=== PATIENT | female | born 1970 | race Caucasian/White ===

== ENCOUNTER 2018-12-13 01:17 | Inpatient (IN) | payer BC ==
[2018-12-13] MEDS ORDERED: ONDANSETRON 4 MG/2 ML VIAL IVPUSH ONE (02:14)
[2018-12-13] MEDS ORDERED: ACETAMINOPHEN 1000 MG/100 ML VIAL (NON FORMULARY) IVPB ONE (02:15)
[2018-12-13] MEDS ORDERED: ACETAMINOPHEN INJECTION 100 ML IVPB ONE (02:38)
[2018-12-13] MEDS ORDERED: ONDANSETRON 4 MG/2 ML VIAL ONE ×2 (02:39→11:42)
[2018-12-13 02:40] LABS: BASO % 0.4 % (0-2.0); EOS % 0.3 % (0-4.5); HEMATOCRIT 33.2 % (32.4-45.2); HEMOGLOBIN 10.5 GM/dL (10.7-15.3); LYMPH % 6.1 % (8-40); MCH 24.9 pg (25.7-33.7); MCHC 31.7 g/dl (32.0-36.0); MEAN CELL VOLUME 78.7 fl (80-96); MEAN PLT VOLUME 7.6 fl (7.5-11.1); MONO % 4.4 % (3.8-10.2); NEUT % 88.8 % (42.8-82.8); PLATELET COUNT 308 K/MM3 (134-434); RBC 4.21 M/mm3 (3.60-5.2); RDW 18.1 % (11.6-15.6); WHITE BLOOD COUNT 10.2 K/mm3 (4.0-10.0)
--- NOTE | 2018-12-13 02:49 | PDOC ---
History of Present Illness - General Chief Complaint: Pain Stated Complaint: ABD PAIN Time Seen by Provider: 12/13/18 02:48 History Source: Patient Exam Limitations: No Limitations - History of Present Illness Initial Comments: Pt is a 48 yo F, with PMH of gastritis, who presents with RUQ and epigastric abdominal pain, with associated nausea and vomiting since last night. Pt states she has had similar pain after eating fatty and spicy foods in the past, but todays pain was worse, and she was unable to tolerate any PO food or fluid intake. Pt denies any hematemesis or blood in the stool. Pt denies any recent fevers/chills, headache, vision changes, syncope, chest pain, palpitations, SOB , urinary symptoms, diarrhea/constipation, or leg swelling. Allergies: NKDA PCP: Curtis Amaral GI: [place] ([facility]) -- last endoscopy done 04/2018 which showed only gastritis. Social: Pt denies any cigarette, alcohol, or drug use. Pt denies any recent travel or sick contacts. Surgical: appendectomy Family: no relevant history. 12/13/18 07:12 Past History - Travel Traveled outside of the country in the last 30 days: No Close contact w/someone who was outside of country & ill: No - Past Medical History Allergies/Adverse Reactions: Allergies Allergy/AdvReac Type Severity Reaction Status Date / Time No Known Allergies Allergy Verified 12/13/18 01:47 Home Medications: Ambulatory Orders NK [No Known Home Medication] 12/13/18 - Suicide/Smoking/Psychosocial Hx Smoking History: Never smoked Hx Alcohol Use: No Drug/Substance Use Hx: No Abd/GI Specific PMHX - Complaint Specific PMHX Colitis: No Diverticulitis: No Gall Bladder Disease: No GERD: Yes Hepatitis: No Irritable Bowel Synd (IBS): No Pancreatitis: No GI Ulcer Disease: No Review of Systems - Review of Systems Able to Perform ROS?: Yes Is the patient limited Albanian proficient: No Constitutional: Yes: Weight Stable. No: Chills, Diaphoresis, Fever, Loss of Appetite, Malaise, Weakness HEENTM: No: Blurred Vision, Double Vision, Nose Congestion, Throat Pain, Throat Swelling, Difficulty Swallowing Respiratory: No: Cough, Orthopnea, Shortness of Breath Cardiac (ROS): No: Chest Pain, Edema, Irregular Heart Rate, Lightheadedness, Palpitations, Syncope, Chest Tightness ABD/GI: Yes: See HPI, Nausea, Poor Appetite, Poor Fluid Intake, Vomiting, Abdominal cramping. No: Constipated, Diarrhea, Difficulty Swallowing, Rectal Bleeding : No: Burning, Dysuria, Frequency, Hematuria, Pain, Urgency Musculoskeletal: No: Back Pain, Joint Pain, Muscle Pain, Muscle Weakness Integumentary: No: Rash Neurological: No: Headache, Numbness, Weakness, Unsteady Gait, Dizziness Psychiatric: No: Sleep Pattern Change, Change in Appetite Endocrine: No: Increased Urine, Change in Weight Hematologic/Lymphatic: No: Anemia, Blood Clots, Easy Bleeding, Easy Bruising All Other Systems: Reviewed and Negative *Physical Exam - Vital Signs Last Vital Signs Temp Pulse Resp BP Pulse Ox 98.3 F 92 H 20 112/56 L 98 12/13/18 01:44 12/13/18 01:44 12/13/18 01:44 12/13/18 01:44 12/13/18 01:44 - Physical Exam Comments: Vitals stable, pt afebrile. Pt vomiting and appears very uncomfortable on initial exam. Normal body habitus. Pt alert and oriented x3. scagliola mechanic generally intact, muscular strength and sensation intact. No midline spinal tenderness, step-offs, or crepitus. Head normocephalic, atraumatic. Eyes PERRLA, EOMI. Oropharynx without erythema or exudates, no LAD b/l. No nasal congestion, hearing intact. Clear heart sounds, S1/S2, no JVD, b/l pedal edema, or heart murmur. Clear lung sounds, no respiratory distress, wheezes, crackles, or accessory muscle use. RUQ and epigastric TTP. No rebound, no guarding. Abdomen soft, non-distended, and with normoactive bowel sounds. Skin without jaundice or rash. 12/13/18 07:15 ED Treatment Course - LABORATORY CBC & Chemistry Diagram: 12/13/18 02:30 12/13/18 02:30 - ADDITIONAL ORDERS Additional order review: 12/13/18 02:30 RBC 4.21 MCV 78.7 L MCHC 31.7 L RDW 18.1 H MPV 7.6 Neutrophils % 88.8 H Lymphocytes % 6.1 L Monocytes % 4.4 Eosinophils % 0.3 Basophils % 0.4 - Medications Given in the ED: ED Medications Discontinued Medications Generic Name Dose Route Start Last Admin Trade Name Emerson PRN Reason Stop Dose Admin Acetaminophen 1,000 mg 12/13/18 02:15 12/13/18 02:46 Ofirmev Injection - IVPB 12/13/18 02:16 1,000 mg ONCE ONE Administration Ondansetron HCl 8 mg 12/13/18 02:14 12/13/18 02:46 Zofran Injection IVPUSH 12/13/18 02:15 8 mg NOW ONE Administration Medical Decision Making - Medical Decision Making Pt was seen at bedside, also will be seen by attending Dr. Alex. Pt presenting with RUQ pain, consistent story with cholelithiasis vs choledocholithiasis vs GERD. Will evaluate with labs and RUQ US. Provided 8 mg IV zofran, 1 L IV NS, 1 g ofirmev, and 20 mg IV pepcid for improvement of nausea and abdominal pain. Will continue to reassess pt and monitor for symptomatic improvement. ECG: NSR, intervals WNL (HR 79, OH 144, QRS 92, QTc 403). TWIs in V1-V4. No prior ECG for comparison. 12/13/18 07:16 CBC WNL CMP: AST 918, ALT 439 Trop <.02 negative US showed fatty liver. GB with sludge and sludge ball. No CBD dilation or signs of obstruction. Pt admitted to hospitalist team for further work-up (HIDA vs MRCP) -- pt admitted to Dr. Shah. Pt stable and states pain much improved after interventions. 12/13/18 07:18 *DC/Admit/Observation/Transfer Diagnosis at time of Disposition: Elevated transaminase level, RUQ pain Cholelithiases Qualifiers: Cholelithiasis location: other site Biliary obstruction: without biliary obstruction Qualified Code(s): K80.80 - Other cholelithiasis without obstruction - Discharge Dispostion Condition at time of disposition: Stable Decision to Admit order: Yes - Referrals - Patient Instructions - Post Discharge Activity
[2018-12-13 03:04] LABS: LIPASE 229 U/L (73-393)
[2018-12-13 03:05] LABS: ALBUMIN 3.9 g/dl (3.4-5.0); BILIRUBIN,TOTAL 0.8 mg/dL (0.2-1); BLOOD UREA NITROGEN 17.4 mg/dL (7-18); CREATININE 0.8 mg/dL (0.55-1.3); POTASSIUM 3.5 mmol/L (3.5-5.1); TOT PROT 6.9 g/dl (6.4-8.2)
--- NOTE | 2018-12-13 03:05 | PDOC ---
Attending Attestation - Resident Resident Name: Mana Brown - ED Attending Attestation I have performed the following: I have examined & evaluated the patient, The case was reviewed & discussed with the resident, I agree w/resident's findings & plan - HPI HPI: 12/13/18 04:44 48-year-old female with right upper quadrant pain and vomiting. - Physicial Exam PE: 12/13/18 04:45 agree with resident exam - Medical Decision Making 12/13/18 04:46 48-year-old female with right upper quadrant pain and abnormal LFTs on exam Ultrasound confirms gallbladder sludge Patient has persistent tenderness on reexam at 4:37 AM Plan for admit for transaminitis and biliary colic for further workup
[2018-12-13 03:13] LABS: INR 1.1 (0.83-1.09)
[2018-12-13] MEDS ORDERED: SODIUM CHLORIDE 1,000 ML IV STA (03:14)
[2018-12-13] MEDS ORDERED: FAMOTIDINE 20 MG/50 ML IVPB 20 MG/50 ML MG IVPB ONE ×2 (03:14→04:27)
[2018-12-13 06:25] LABS: EPI CELLS 19.9 /HPF (0-5/HPF); HYALINE CASTS 9 /lpf (0-8); PH,URINE 8.5 (5.0-8.0); URINE APPEARANCE CLEAR; URINE BACTERIA 211.9 /hpf (NEGATIVE); URINE BILIRUBIN NEGATIVE (NEGATIVE); URINE COLOR YELLOW; URINE GLUCOSE (UA) NEGATIVE (NEGATIVE); URINE KETONE NEGATIVE (NEGATIVE); URINE LEUK ESTERASE NEGATIVE (NEGATIVE); URINE NITRITE NEGATIVE (NEGATIVE); URINE PROTEIN 2+ (NEGATIVE); URINE RBC 5 /hpf (0-4)
--- NOTE | 2018-12-13 07:35 | HP ---
CHIEF COMPLAINT:RUQ pain/vomiting PCP: Dr. Amaral HISTORY OF PRESENT ILLNESS: 48 y.o female with PMH of gastritis, pinched nerves in neck presents to the ED with complaints of abdominal pain/nausea/vomiting- patient has had a history of having abdominal pains shortly after eating (especially after eating greasy, fatty meats) for which she has seen a GI doctor in the city for; she had an endosocpy and sonogram done last year which showed some gastritis and fatty liver but no other acute findings, and she has been taking the occasional antacid pill in the interim. Yesterday she states that she was eating some ceviche, manchego cheese and crackers and had a few sips of a mimosa when the pain started, she states it was mainly in the RUQ, she also had some associated diarrhea/nausea- so she took a tylenol and rolaid and the pain felt better. She then went on to have fried coconut wrapped pork for dinner and the pain got as unbearable, (02/02) that she told her to call the ambulance . she denies any fevers,chills, SOB , no recent travel or sick contacts, ER course was notable for: (1)vitals wnl (2)WBC 10.2; AST 918, ALT 439 lipase wnl (3)Ab U/S showed gallbladder sludge with possible sludge ball; a nonshadowing stone or large polyp present (4) given pepcid/zofran/tylenol Recent Travel: denies PAST MEDICAL HISTORY: see above PAST SURGICAL HISTORY: appendectomy as a child Social History: Smoking:denies Alcohol:social drinking Drugs: denies Family History:family history of gallstones on fathers side; father from lung ca, paternal grandmother had stomach ca Allergies No Known Allergies Allergy (Verified 12/13/18 01:47) HOME MEDICATIONS: Home Medications Medication Instructions Recorded NK [No Known Home Medication] 12/13/18 REVIEW OF SYSTEMS CONSTITUTIONAL: Absent: fever, chills, diaphoresis, generalized weakness, malaise, loss of appetite, weight change HEENT: Absent: rhinorrhea, nasal congestion, throat pain, throat swelling, difficulty swallowing, mouth swelling, ear pain, eye pain, visual changes CARDIOVASCULAR: Absent: chest pain, syncope, palpitations, irregular heart rate, lightheadedness , peripheral edema RESPIRATORY: Absent: cough, shortness of breath, dyspnea with exertion, orthopnea, wheezing, stridor, hemoptysis GASTROINTESTINAL: Present: abdominal pain, nausea,vomiting, diarrhea Absent: abdominal distension , constipation, melena, hematochezia GENITOURINARY: Absent: dysuria, frequency, urgency, hesitancy, hematuria, flank pain, genital pain MUSCULOSKELETAL: Absent: myalgia, arthralgia, joint swelling, back pain, neck pain SKIN: Absent: rash, itching, pallor HEMATOLOGIC/IMMUNOLOGIC: Absent: easy bleeding, easy bruising, lymphadenopathy, frequent infections ENDOCRINE: Absent: unexplained weight gain, unexplained weight loss, heat intolerance, cold intolerance NEUROLOGIC: Absent: headache, focal weakness or paresthesias, dizziness, unsteady gait, seizure, mental status changes, bladder or bowel incontinence PSYCHIATRIC: Absent: anxiety, depression, suicidal or homicidal ideation, hallucinations. PHYSICAL EXAMINATION Vital Signs - 24 hr 12/13/18 01:44 Temperature 98.3 F Pulse Rate 92 H Respiratory 20 Rate Blood Pressure 112/56 L O2 Sat by Pulse 98 Oximetry (%) GENERAL: Awake, alert, and fully oriented, in no acute distress. EYES: PEERLA; EOMI; no scleral icterus NECK: no JV; no lymphadenopathy LUNGS: CTA B/L; no rales, rhonchi of wheezing HEART: Regular rate and rhythm, normal S1 and S2 without murmur, rub or gallop. ABDOMEN: Soft, slight RUQ tenderness upon palpation; negative murphys; +BS in all 4 quadrants MUSCULOSKELETAL: Normal range of motion at all joints. No bony deformities or tenderness. No CVA tenderness. EXTREMITIES: warm; well-perfused; no clubbing/cyanosis or edema PSYCHIATRIC: Cooperative. Good eye contact. Appropriate mood and affect. SKIN: Warm, dry, normal turgor, no rashes or lesions noted, normal capillary refill. Laboratory Results - last 24 hr 12/13/18 12/13/18 12/13/18 02:30 02:30 02:30 WBC 10.2 H RBC 4.21 Hgb 10.5 L Hct 33.2 MCV 78.7 L MCH 24.9 L MCHC 31.7 L RDW 18.1 H Plt Count 308 MPV 7.6 Absolute Neuts (auto) 9.1 H Neutrophils % 88.8 H Lymphocytes % 6.1 L Monocytes % 4.4 Eosinophils % 0.3 Basophils % 0.4 Nucleated RBC % 0 PT with INR INR Sodium 143 Potassium 3.5 Chloride 108 H Carbon Dioxide 28 Anion Gap 7 L BUN 17.4 Creatinine 0.8 Est GFR (CKD-EPI)AfAm 101.75 Est GFR (CKD-EPI)NonAf 87.79 Random Glucose 100 Calcium 9.0 Total Bilirubin 0.8 AST 918 H ALT 439 H Alkaline Phosphatase 112 Troponin I < 0.02 Total Protein 6.9 Albumin 3.9 Lipase 229 Serum , Qual Urine Color Urine Appearance Urine pH Ur Specific Wallace Urine Protein Urine Glucose (UA) Urine Ketones Urine Blood Urine Nitrite Urine Bilirubin Urine Urobilinogen Ur Leukocyte Esterase Urine WBC (Auto) Urine RBC (Auto) Urine Casts (Auto) U Epithel Cells (Auto) U Sm Round Cell (Auto) Urine Bacteria (Auto) Blood Type Antibody Screen 12/13/18 12/13/18 12/13/18 02:30 02:30 02:30 WBC RBC Hgb Hct MCV MCH MCHC RDW Plt Count MPV Absolute Neuts (auto) Neutrophils % Lymphocytes % Monocytes % Eosinophils % Basophils % Nucleated RBC % PT with INR 13.00 INR 1.10 H Sodium Potassium Chloride Carbon Dioxide Anion Gap BUN Creatinine Est GFR (CKD-EPI)AfAm Est GFR (CKD-EPI)NonAf Random Glucose Calcium Total Bilirubin AST ALT Alkaline Phosphatase Troponin I Total Protein Albumin Lipase Serum , Qual Negative Urine Color Urine Appearance Urine pH Ur Specific Wallace Urine Protein Urine Glucose (UA) Urine Ketones Urine Blood Urine Nitrite Urine Bilirubin Urine Urobilinogen Ur Leukocyte Esterase Urine WBC (Auto) Urine RBC (Auto) Urine Casts (Auto) U Epithel Cells (Auto) U Sm Round Cell (Auto) Urine Bacteria (Auto) Blood Type O POSITIVE Antibody Screen Negative 12/13/18 06:15 WBC RBC Hgb Hct MCV MCH MCHC RDW Plt Count MPV Absolute Neuts (auto) Neutrophils % Lymphocytes % Monocytes % Eosinophils % Basophils % Nucleated RBC % PT with INR INR Sodium Potassium Chloride Carbon Dioxide Anion Gap BUN Creatinine Est GFR (CKD-EPI)AfAm Est GFR (CKD-EPI)NonAf Random Glucose Calcium Total Bilirubin AST ALT Alkaline Phosphatase Troponin I Total Protein Albumin Lipase Serum , Qual Urine Color Yellow Urine Appearance Clear Urine pH 8.5 H Ur Specific Wallace 1.028 Urine Protein 2+ H Urine Glucose (UA) Negative Urine Ketones Negative Urine Blood 2+ H Urine Nitrite Negative Urine Bilirubin Negative Urine Urobilinogen 1.0 Ur Leukocyte Esterase Negative Urine WBC (Auto) none seen Urine RBC (Auto) 5 Urine Casts (Auto) 9 U Epithel Cells (Auto) 19.9 U Sm Round Cell (Auto) Review A* Urine Bacteria (Auto) 211.9 Blood Type Antibody Screen ASSESSMENT/PLAN: 48 y.o female with PMH of gastritis, pinched nerves in neck presents to the ED with complaints of abdominal pain/nausea/vomiting found to have gallbladder sludge on abdominal U/S with concomitant transaminitis # RUQ pain with transaminitis preliminary US read is showing gallbladder sludge with possible sludge ball and ? stone v. large polyp -will await final read -surgery consult; Dr. Daniel -NPO -zofran PRN for nausea -morphine PRN for pain -will hold off on abx as patient is currently afebrile; non-toxic appearing -NS @75mls/hr F/E/N NS@75mls/hr monitor electrolytes NPO dvt ppx: SCDS Problem List - Problem (1) Elevated transaminase level Code(s): R74.0 - NONSPEC ELEV OF LEVELS OF TRANSAMNS & LACTIC ACID DEHYDRGNSE (2) RUQ pain Code(s): R10.11 - RIGHT UPPER QUADRANT PAIN Visit type - Emergency Visit Emergency Visit: Yes ED Registration Date: 12/13/18 Care time: The patient presented to the Emergency Department on the above date and was hospitalized for further evaluation of their emergent condition. - New Patient This patient is new to me today: Yes Date on this admission: 12/13/18 - Critical Care Critical Care patient: No ATTENDING PHYSICIAN STATEMENT I saw and evaluated the patient. I reviewed the resident's note and discussed the case with the resident. I agree with the resident's findings and plan as documented. SUBJECTIVE: OBJECTIVE: ASSESSMENT AND PLAN:
[2018-12-13] MEDS: SODIUM CHLORIDE 1,000 ML IV SCH ×2 (08:24→21:39)
[2018-12-13] MEDS ORDERED: MORPHINE SULFATE 2 MG/ML VIAL IVPUSH PRN (08:34)
--- NOTE | 2018-12-13 08:42 | PN ---
Teaching Attending Note Name of Resident: Radha Lopes ATTENDING PHYSICIAN STATEMENT I saw and evaluated the patient. I reviewed the resident's note and discussed the case with the resident. I agree with the resident's findings and plan as documented. SUBJECTIVE: This is a 48 year old woman with a history of gastritis who comes to the ED complaining of abdominal pain, nausea, and vomiting. She reports having abdominal pain after eating fried, greasy, and fatty foods. She had endosocpy and ultrasound last year and was diagnosed with gastritis and fatty liver. but no other acute findings, and she has been taking the occasional antacid pill in the interim. Yesterday, the pain started in the RUQ while eating. She took Rolaids and Tylenol with relief. She then ate fried pork and coconut and the pain became severe. She denies fever, chills. OBJECTIVE: Vital Signs Period Temp Pulse Resp BP Sys/Fre[place] Pulse Ox Last 24 Hr 98.3 F 92 20 112/56 98 HEART: S1S2, RRR LUNGS: Clear ABDOMEN: Soft, non-distended, (+) RUQ tenderness, normal BS EXTREMITIES: No edema Laboratory Tests 12/13/18 12/13/18 12/13/18 02:30 02:30 02:30 WBC 10.2 H RBC 4.21 Hgb 10.5 L Hct 33.2 MCV 78.7 L MCH 24.9 L MCHC 31.7 L RDW 18.1 H Plt Count 308 MPV 7.6 Absolute Neuts (auto) 9.1 H Neutrophils % 88.8 H Lymphocytes % 6.1 L Monocytes % 4.4 Eosinophils % 0.3 Basophils % 0.4 Nucleated RBC % 0 PT with INR INR Sodium 143 Potassium 3.5 Chloride 108 H Carbon Dioxide 28 Anion Gap 7 L BUN 17.4 Creatinine 0.8 Est GFR (CKD-EPI)AfAm 101.75 Est GFR (CKD-EPI)NonAf 87.79 Random Glucose 100 Calcium 9.0 Total Bilirubin 0.8 AST 918 H ALT 439 H Alkaline Phosphatase 112 Troponin I < 0.02 Total Protein 6.9 Albumin 3.9 Lipase 229 Serum , Qual Urine Color Urine Appearance Urine pH Ur Specific [place] Urine Protein Urine Glucose (UA) Urine Ketones Urine Blood Urine Nitrite Urine Bilirubin Urine Urobilinogen Ur Leukocyte Esterase Urine WBC (Auto) Urine RBC (Auto) Urine Casts (Auto) U Epithel Cells (Auto) U Sm Round Cell (Auto) Urine Bacteria (Auto) Blood Type Antibody Screen 12/13/18 12/13/18 12/13/18 02:30 02:30 02:30 WBC RBC Hgb Hct MCV MCH MCHC RDW Plt Count MPV Absolute Neuts (auto) Neutrophils % Lymphocytes % Monocytes % Eosinophils % Basophils % Nucleated RBC % PT with INR 13.00 INR 1.10 H Sodium Potassium Chloride Carbon Dioxide Anion Gap BUN Creatinine Est GFR (CKD-EPI)AfAm Est GFR (CKD-EPI)NonAf Random Glucose Calcium Total Bilirubin AST ALT Alkaline Phosphatase Troponin I Total Protein Albumin Lipase Serum , Qual Negative Urine Color Urine Appearance Urine pH Ur Specific [place] Urine Protein Urine Glucose (UA) Urine Ketones Urine Blood Urine Nitrite Urine Bilirubin Urine Urobilinogen Ur Leukocyte Esterase Urine WBC (Auto) Urine RBC (Auto) Urine Casts (Auto) U Epithel Cells (Auto) U Sm Round Cell (Auto) Urine Bacteria (Auto) Blood Type O POSITIVE Antibody Screen Negative 12/13/18 06:15 WBC RBC Hgb Hct MCV MCH MCHC RDW Plt Count MPV Absolute Neuts (auto) Neutrophils % Lymphocytes % Monocytes % Eosinophils % Basophils % Nucleated RBC % PT with INR INR Sodium Potassium Chloride Carbon Dioxide Anion Gap BUN Creatinine Est GFR (CKD-EPI)AfAm Est GFR (CKD-EPI)NonAf Random Glucose Calcium Total Bilirubin AST ALT Alkaline Phosphatase Troponin I Total Protein Albumin Lipase Serum , Qual Urine Color Yellow Urine Appearance Clear Urine pH 8.5 H Ur Specific [place] 1.028 Urine Protein 2+ H Urine Glucose (UA) Negative Urine Ketones Negative Urine Blood 2+ H Urine Nitrite Negative Urine Bilirubin Negative Urine Urobilinogen 1.0 Ur Leukocyte Esterase Negative Urine WBC (Auto) none seen Urine RBC (Auto) 5 Urine Casts (Auto) 9 U Epithel Cells (Auto) 19.9 U Sm Round Cell (Auto) Review A* Urine Bacteria (Auto) 211.9 Blood Type Antibody Screen Home Medications Medication Instructions Recorded NK [No Known Home Medication] 12/13/18 ASSESSMENT AND PLAN: This is a 48 year old woman with a history of gastritis who presented to the ED with RUQ abdominal pain, nausea, and vomiting with meals. 1. Biliary colic - No evidence of choledocholithiasis, cholangitis, cholecystitis - NPO - IV fluid - Zofran as needed for nausea - Morphine as needed for pain - Surgery consult
[2018-12-13] MEDS ORDERED: MORPHINE SULFATE 2 MG/ML VIAL ONE (11:42)
[2018-12-13] MEDS: ONDANSETRON 4 MG/2 ML VIAL IVPUSH PRN (11:43)
--- NOTE | 2018-12-13 12:11 | CONSULT ---
- Consultation REQUESTING PROVIDER: Alyssa BENDER CONSULT REQUEST: We have been asked to surgically evaluate this patient for possible symptomatic gallbladder disease. PCP:Uli Shah MD HISTORY OF PRESENT ILLNESS: 48 y/o female presented to the ED w/ RUQ pain and n/v after eating; she has been w/u for this in the past w/ a GI economic consultant elsewhere and was told she had gastritis; she ?? 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 PMHx: ? gastritis ? PSHx: open appendectomy Home Medications Medication Instructions Recorded NK [No Known Home Medication] 12/13/18 Allergies Allergy/AdvReac Type Severity Reaction Status Date / Time No Known Allergies Allergy Verified 12/13/18 01:47 REVIEW OF SYSTEMS: CONSTITUTIONAL: Absent: fever, chills, diaphoresis, generalized weakness, malaise, loss of appetite, weight change CARDIOVASCULAR: Absent: chest pain, syncope, palpitations, irregular heart rate, lightheadedness , peripheral edema RESPIRATORY: Absent: cough, shortness of breath, dyspnea with exertion, wheezing, stridor, hemoptysis GASTROINTESTINAL: Present: abdominal pain, abdominal distension, nausea, vomiting, Absent: diarrhea, constipation, melena, hematochezia GENITOURINARY: Absent: dysuria, frequency, urgency, hesitancy, hematuria, flank pain, genital pain MUSCULOSKELETAL: Absent: myalgia, arthralgia, joint swelling, back pain, neck pain SKIN: Absent: rash, itching, pallor HEMATOLOGIC/IMMUNOLOGIC: Absent: easy bleeding, easy bruising, lymphadenopathy NEUROLOGIC: Absent: headache, focal weakness, paresthesias, dizziness, unsteady gait, seizure, mental status changes, bladder or bowel incontinence PSYCHIATRIC: Absent: anxiety, depression, suicidal or homicidal ideation, hallucinations. PHYSICAL EXAM: GENERAL: Awake, alert, and fully oriented, in no acute distress. HEAD: Normal with no signs of trauma. EYES: sclera anicteric, conjunctiva clear. NECK: Normal ROM, supple without lymphadenopathy, JVD, or masses. ABDOMEN: Soft,tender RUQ, not distended, normoactive bowel sounds, RUQ guarding , no rebound, no masses. No organomegaly. No hernias; healed RLQ scar. MUSCULOSKELETAL: Normal ROM at all joints. No bony deformities or tenderness. No CVA tenderness. UPPER EXTREMITIES: 2+ pulses, warm, well-perfused. No cyanosis. Cap refill <2 seconds. No peripheral edema. LOWER EXTREMITIES: 2+ pulses, warm, well-perfused. No calf tenderness. No peripheral edema. NEUROLOGICAL: Normal speech, gait not observed. PSYCH: Cooperative. Good eye contact. Appropriate mood and affect. SKIN: Warm, dry, normal turgor, no rashes or lesions noted. Vital Signs Temperature 98.3 F 12/13/18 01:44 Pulse Rate 92 H 12/13/18 01:44 Respiratory Rate 20 12/13/18 01:44 Blood Pressure 112/56 L 12/13/18 01:44 O2 Sat by Pulse Oximetry (%) 98 12/13/18 01:44 Lab Results WBC 10.2 K/mm3 (4.0-10.0) H 12/13/18 02:30 RBC 4.21 M/mm3 (3.60-5.2) 12/13/18 02:30 Hgb 10.5 GM/dL (10.7-15.3) L 12/13/18 02:30 Hct 33.2 % (32.4-45.2) 12/13/18 02:30 MCV 78.7 fl (80-96) L 12/13/18 02:30 MCHC 31.7 g/dl (32.0-36.0) L 12/13/18 02:30 RDW 18.1 % (11.6-15.6) H 12/13/18 02:30 Plt Count 308 K/MM3 (134-434) 12/13/18 02:30 Sodium 143 mmol/L (136-145) 12/13/18 02:30 Potassium 3.5 mmol/L (3.5-5.1) 12/13/18 02:30 Chloride 108 mmol/L (98-107) H 12/13/18 02:30 Carbon Dioxide 28 mmol/L (21-32) 12/13/18 02:30 Anion Gap 7 MMOL/L (8-16) L 12/13/18 02:30 BUN 17.4 mg/dL (7-18) 12/13/18 02:30 Creatinine 0.8 mg/dL (0.55-1.3) 12/13/18 02:30 Random Glucose 100 mg/dL (74-106) 12/13/18 02:30 Calcium 9.0 mg/dL (8.5-10.1) 12/13/18 02:30 Blood Type O POSITIVE 12/13/18 02:30 Antibody Screen Negative 12/13/18 02:30 INR 1.10 (0.83-1.09) H 12/13/18 02:30 Imaging w/u to date and w/u to date reviewed. IMP: This appears to be c/w possible biliary colic; vs. biliary dyskinesia or SOD. PLAN: Suggest NPO/IVF/+/- IVABS; HIDA scan to check for EF/biliary dyskinesia and w/u for isolated elevated LFT'S. Naseem Daniel MD FACS
--- NOTE | 2018-12-13 16:05 | EKG ---
Test Reason : Blood Pressure : / mmHG Vent. Rate : 079 BPM Atrial Rate : 079 BPM P-R Int : 144 ms QRS Dur : 092 ms QT Int : 352 ms P-R-T Axes : 022 033 039 degrees QTc Int : 403 ms NORMAL SINUS RHYTHM T WAVE ABNORMALITY, CONSIDER ANTERIOR ISCHEMIA ABNORMAL ECG NO PREVIOUS ECGS AVAILABLE Confirmed by MD KRYSTLE, TOYIN ([id number]) on 12/13/2018 4:04:55 PM Referred By: Confirmed By:TOYIN DALTON MD
[2018-12-14 05:07] VITALS: BMI 28.2
[2018-12-14 09:30] LABS: BASO % 0.4 % (0-2.0); HEMOGLOBIN 9.3 GM/dL (10.7-15.3); LYMPH % 25.6 % (8-40); MCH 24.8 pg (25.7-33.7); MCHC 31.1 g/dl (32.0-36.0); MEAN CELL VOLUME 79.8 fl (80-96); MEAN PLT VOLUME 7.8 fl (7.5-11.1); MONO % 5.3 % (3.8-10.2); NEUT % 67.7 % (42.8-82.8); PLATELET COUNT 282 K/MM3 (134-434); RBC 3.76 M/mm3 (3.60-5.2); RDW 17.7 % (11.6-15.6); WHITE BLOOD COUNT 6.5 K/mm3 (4.0-10.0)
[2018-12-14 10:11] LABS: ALBUMIN 3.4 g/dl (3.4-5.0); BLOOD UREA NITROGEN 13.3 mg/dL (7-18); CALCIUM 8.3 mg/dL (8.5-10.1); CREATININE 0.7 mg/dL (0.55-1.3); MAGNESIUM 2.2 mg/dL (1.8-2.4); POTASSIUM 3.6 mmol/L (3.5-5.1)
--- NOTE | 2018-12-14 12:20 | EKG ---
Test Reason : Blood Pressure : / mmHG Vent. Rate : 061 BPM Atrial Rate : 061 BPM P-R Int : 128 ms QRS Dur : 094 ms QT Int : 418 ms P-R-T Axes : 031 032 035 degrees QTc Int : 420 ms NORMAL SINUS RHYTHM NORMAL ECG WHEN COMPARED WITH ECG OF 13-DEC-2018 05:21, T WAVE INVERSION NO LONGER EVIDENT IN ANTERIOR LEADS Confirmed by CADEN VAZQUEZ MD ([id number]) on 12/14/2018 12:20:01 PM Referred By: TAHIR TUBBS Confirmed By:CADEN VAZQUEZ MD
[2018-12-14] MEDS: SODIUM CHLORIDE 1,000 ML IV SCH (12:51)
--- NOTE | 2018-12-14 13:46 | PN ---
Progress Note (short form) - Note Progress Note: Pt seen and examined this AM. Pain has improved. Has been oob to restroom without issue. No n/v/d. NPO since yesterday. No issues overnight. On exam, abdomen soft, nt/nd. + bowel sounds General surgery following, awaiting further workup HIDA scan/MRCP Keep NPO/IVF/+/- IVABX Will follow d/w attending Dr Daniel
[2018-12-14 13:57] LABS: IRON SERUM 14 ug/dL (50-175); TOTAL IRON BINDING CAPACITY 326 ug/dL (250-450)
--- NOTE | 2018-12-14 15:05 | PN ---
Physical Exam: SUBJECTIVE: Patient seen and examined by the bedside, AOx3 OBJECTIVE: Vital Signs Period Temp Pulse Resp BP Sys/Freitas Pulse Ox Last 24 Hr 98.0 F-98.7 F 56-66 18-18 92-113/51-69 98-98 GENERAL: The patient is awake, alert, and fully oriented, in no acute distress. HEAD: Normal with no signs of trauma. EYES: PERRL, extraocular movements intact, sclera anicteric, conjunctiva clear. No ptosis. ENT: Ears normal, nares patent, oropharynx clear without exudates, moist mucous membranes. NECK: Trachea midline, full range of motion, supple, thyroid isthmus palpable LUNGS: Breath sounds equal, clear to auscultation bilaterally, no wheezes, no crackles, no accessory muscle use. HEART: Regular rate and rhythm, S1, S2 without murmur, rub or gallop. ABDOMEN: Soft, nondistended, nontender, normoactive B EXTREMITIES: 2+ pulses, warm, well-perfused, no edema, strength 5/5 B/L NEUROLOGICAL: Cranial nerves II through XII grossly intact. Normal speech, gait not observed. PSYCH: Normal mood, normal affect. SKIN: Warm, dry, normal turgor, no rashes or lesions noted Laboratory Results - last 24 hr 12/13/18 12/14/18 12/14/18 09:04 09:04 09:04 WBC 6.5 RBC 3.76 Hgb 9.3 L Hct 30.0 L MCV 79.8 L MCH 24.8 L MCHC 31.1 L RDW 17.7 H Plt Count 282 MPV 7.8 Absolute Neuts (auto) 4.4 Neutrophils % 67.7 D Lymphocytes % 25.6 D Monocytes % 5.3 Eosinophils % 1.0 D Basophils % 0.4 Nucleated RBC % 0 Sodium 145 Potassium 3.6 Chloride 111 H Carbon Dioxide 25 Anion Gap 9 BUN 13.3 Creatinine 0.7 Est GFR (CKD-EPI)AfAm 119.58 Est GFR (CKD-EPI)NonAf 103.18 Random Glucose 69 L Calcium 8.3 L Magnesium 2.2 Iron TIBC Iron Saturation Unsaturated IBC Total Bilirubin 1.0 AST 352 H ALT 547 H Alkaline Phosphatase 106 Total Protein 6.0 L Albumin 3.4 Blood Type O POSITIVE 12/14/18 12:50 WBC RBC Hgb Hct MCV MCH MCHC RDW Plt Count MPV Absolute Neuts (auto) Neutrophils % Lymphocytes % Monocytes % Eosinophils % Basophils % Nucleated RBC % Sodium Potassium Chloride Carbon Dioxide Anion Gap BUN Creatinine Est GFR (CKD-EPI)AfAm Est GFR (CKD-EPI)NonAf Random Glucose Calcium Magnesium Iron 14 L TIBC 326 Iron Saturation 4 L Unsaturated IBC 312 H Total Bilirubin AST ALT Alkaline Phosphatase Total Protein Albumin Blood Type Active Medications Generic Name Dose Route Start Last Admin Trade Name Frechu PRN Reason Stop Dose Admin Sodium Chloride 1,000 mls @ 75 mls/hr 12/13/18 07:45 12/14/18 12:51 Normal Saline - IV 75 mls/hr ASDIR CHRISSY Administration Ondansetron HCl 4 mg 12/13/18 07:40 12/13/18 11:43 Zofran Injection IVPUSH 4 mg Q6H PRN Administration NAUSEA ASSESSMENT/PLAN: 48 YO F with PMH of GERD and 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 She has had similar episodes over the past one year, but pain usually resolves after vomiting. This time the pain persisted, prompting her to visit the ER. # RUQ pain - CTA to rule out mesenteric ischemia (pain immediately after eating fits the picture) - US Abdomen: GB sludge with sludge ball vs polyp 1.5 x 0.6, no evidence of cholecystitis, can not rule out stone - HIDA: no evidence of cystic duct obstruction, CBD occlusion vs Sphincter of Oddi spasm - Surgery consult (Dr. Daniel): May do MRCP - Zofran PRN for nausea, Morphine D/Sterling #Transaminitis - LFTs downtrending: AST 918-352, ALT 439-547, ALP 112-106 #Bradycardia: - second EKG: NSR, TWI no longer seen in anteroseptal leads #Anemia - Fe studies: Fe 14 L TIBC 326 N, Fe Saturation 4 L, Unsaturated IBC 312 H #FEN - NS@75mls/hr - NPO #DVT AL - SCDs Visit type - Emergency Visit Emergency Visit: Yes ED Registration Date: 12/13/18 Care time: The patient presented to the Emergency Department on the above date and was hospitalized for further evaluation of their emergent condition. - New Patient This patient is new to me today: No - Critical Care Critical Care patient: No - Discharge Referral Referred to [facility] Med P.C.: No ATTENDING PHYSICIAN STATEMENT I saw and evaluated the patient. I reviewed the resident's note and discussed the case with the resident. I agree with the resident's findings and plan as documented. SUBJECTIVE: OBJECTIVE: ASSESSMENT AND PLAN:
--- NOTE | 2018-12-14 18:08 | PN ---
Teaching Attending Note Name of Resident: Iraj Chairez ATTENDING PHYSICIAN STATEMENT I saw and evaluated the patient. I reviewed the resident's note and discussed the case with the resident. I agree with the resident's findings and plan as documented. SUBJECTIVE: abd pain in epigastric and RUQ. worse with eating. chronically she has pain right after eating which restricted her po intake. no diarrhea. last EGD in Apr, reportedly showed gastirits . she has h/o anemia, was never prescribed iron . OBJECTIVE: NAD. MMM. Thyroid exam: palpated isthmus with small ( < 1cm ) nodule at the junction between isthmus and L thyroid lob. no enlargement in lobs Cv: RRR, no MRG Lungs: CATB Ext : No edema or erythema Abd: soft, ND, TTP in epigastric area and RUQ. Neg Do's . no rebound tenderness ASSESSMENT AND PLAN: 48 y/o lady with h/o chronic postprandial abd pain, anemia, gastritis who presented with worsening RUQ pain that did not resolve. 1- RUQ pain. no evidence of acute cholecystitis. HIDA reviewed. - ? Passed a stone , given improvement in LFTs Vs sphincter of Oddi dysfunction - absence of bili and Alk phos elevation argues against obstructive picture - obtain MRCP before cholecystectomy - keep NPO - No need for Abx . No cholecystitis and no signs of sepsis - check Hepatitis serology given elevated ALT/AST 2- chronic immediate postprandial abd pain: suspicious for chronic mesenteric ischemia ( intestinal angina) - order CTA of abd - add PPI given h/o gastritis 3- Chronic microcytic anemia: DDX iron def, thalassemia, sideroblastic anemia, other - start with iron studies, then will decide on next step. further eval can be done as out pt 4- Thyroid nodule felt on exam: - check TSH - US of thyroid as out pt then Bx if indicated 5- DVT PX : hold off for possible sx in am
[2018-12-15] MEDS: SODIUM CHLORIDE 1,000 ML IV SCH ×2 (06:33→20:19)
[2018-12-15 09:07] LABS: HEMATOCRIT 28.8 % (32.4-45.2); HEMOGLOBIN 9.3 GM/dL (10.7-15.3); MCH 25.5 pg (25.7-33.7); MCHC 32.3 g/dl (32.0-36.0); MEAN CELL VOLUME 78.9 fl (80-96); PLATELET COUNT 294 K/MM3 (134-434); RBC 3.66 M/mm3 (3.60-5.2); RDW 17.9 % (11.6-15.6); WHITE BLOOD COUNT 6.2 K/mm3 (4.0-10.0)
[2018-12-15 09:46] LABS: ALBUMIN 3.2 g/dl (3.4-5.0); BILIRUBIN,TOTAL 0.9 mg/dL (0.2-1); BLOOD UREA NITROGEN 9.3 mg/dL (7-18); CALCIUM 8.1 mg/dL (8.5-10.1); CREATININE 0.6 mg/dL (0.55-1.3); POTASSIUM 3.7 mmol/L (3.5-5.1); TOT PROT 5.9 g/dl (6.4-8.2)
[2018-12-15] MEDS: PANTOPRAZOLE SODIUM 40 MG VIAL IVPUSH SCH (11:01)
--- NOTE | 2018-12-15 11:38 | EKG ---
Test Reason : Blood Pressure : / mmHG Vent. Rate : 064 BPM Atrial Rate : 064 BPM P-R Int : 132 ms QRS Dur : 088 ms QT Int : 420 ms P-R-T Axes : 028 035 039 degrees QTc Int : 433 ms NORMAL SINUS RHYTHM NORMAL ECG WHEN COMPARED WITH ECG OF 14-DEC-2018 12:02, NO SIGNIFICANT CHANGE WAS FOUND Confirmed by AAMIR STEWARD MD ([id number]) on 12/15/2018 11:37:51 AM Referred By: FLORIN SHEPHERD Confirmed By:AAMIR STEWARD MD
--- NOTE | 2018-12-15 11:53 | PN ---
Progress Note (short form) - Note Progress Note: No acute events per RN notes over past 24hrs. Resting comfortably. Pain has improved. Remains NPO. HIDA:no evidence of cholecystitis however, tracer not seen in SB (most likely secondary to spasm sphincter of Juwan s/p narcotic during exam). becuase of this an MRCP was ordered. Awaiting results. Problem List - Problems (1) RUQ pain Code(s): R10.11 - RIGHT UPPER QUADRANT PAIN (2) Elevated transaminase level Code(s): R74.0 - NONSPEC ELEV OF LEVELS OF TRANSAMNS & LACTIC ACID DEHYDRGNSE
--- NOTE | 2018-12-15 14:02 | PN ---
Teaching Attending Note Name of Resident: Iraj Chairez ATTENDING PHYSICIAN STATEMENT I saw and evaluated the patient. I reviewed the resident's note and discussed the case with the resident. I agree with the resident's findings and plan as documented. SUBJECTIVE: No fever or chills. No ARCE , no N/V. abd pain is still there in RUQ and epigastric area. No BM today . no flatus today. OBJECTIVE: NAD. MMM. Thyroid exam: palpated isthmus with small ( < 1cm ) nodule at the junction between isthmus and L thyroid lob. no enlargement in lobs Cv: RRR, no MRG Lungs: CATB Ext : No edema or erythema Abd: soft, ND, TTP in epigastric area and RUQ. Neg Do's . no rebound tenderness ASSESSMENT AND PLAN: 48 y/o lady with h/o chronic postprandial abd pain, anemia, gastritis who presented with worsening RUQ pain that did not resolve. 1- RUQ pain. no evidence of acute cholecystitis. CT showed thickening in colon wall. LFTs improved. Not sure if she had passed a stone. neg hepatitis serology, add Hep B s abs, and core IgM abs Not sure if she has colitis , no leukocytosis, no fever, diarrhea. - follow MRCP report - start on clears - will ask GI opinion. - d/w dr. Daniel, will wait for MRCp 2- Chronic postprandial abd pain: - CTA with patent vessels - will try to obtain her last endoscopy report 3- Chronic microcytic anemia:iron studies might indicate iron def. likely due to poor nutrition from chronic postprandial pain - will start iron supp at dc - OB in stool - obtain out pt records 4- Thyroid nodule felt on exam: - TSH Nl - US of thyroid as out pt then Bx if indicated 5- DVT PX: heparin SQ
--- NOTE | 2018-12-15 14:38 | PN ---
Physical Exam: SUBJECTIVE: Patient seen and examined by the bedside, AOx3, in no acute distress. OBJECTIVE: Vital Signs Period Temp Pulse Resp BP Sys/Freitas Pulse Ox Last 24 Hr 98.0 F-98.5 F 60-65 18-18 100-120/59-69 99 GENERAL: The patient is awake, alert, and fully oriented, in no acute distress. HEAD: Normal with no signs of trauma. EYES: PERRL, extraocular movements intact, sclera anicteric, conjunctiva clear. No ptosis. ENT: Ears normal, nares patent, oropharynx clear without exudates, moist mucous membranes. NECK: Trachea midline, full range of motion, supple, thyroid isthmus palpable LUNGS: Breath sounds equal, clear to auscultation bilaterally, no wheezes, no crackles, no accessory muscle use. HEART: Regular rate and rhythm, S1, S2 without murmur, rub or gallop. ABDOMEN: Soft, nondistended, nontender, normoactive B EXTREMITIES: 2+ pulses, warm, well-perfused. Swelling noted around IV insertion site on the right arm. NEUROLOGICAL: Cranial nerves II through XII grossly intact. Normal speech, gait not observed. PSYCH: Normal mood, normal affect. SKIN: Warm, dry, normal turgor, no rashes or lesions noted Laboratory Results - last 24 hr 12/14/18 12/15/18 12/15/18 12:50 08:05 08:05 WBC 6.2 RBC 3.66 Hgb 9.3 L Hct 28.8 L MCV 78.9 L MCH 25.5 L MCHC 32.3 RDW 17.9 H Plt Count 294 MPV 8.0 Sodium 143 Potassium 3.7 Chloride 112 H Carbon Dioxide 24 Anion Gap 7 L BUN 9.3 Creatinine 0.6 Est GFR (CKD-EPI)AfAm 125.80 Est GFR (CKD-EPI)NonAf 108.54 Random Glucose 62 L Calcium 8.1 L Ferritin Total Bilirubin 0.9 AST 141 H ALT 374 H Alkaline Phosphatase 88 Total Protein 5.9 L Albumin 3.2 L TSH 0.91 Hep A IgM Ab Confirm Negative Hep Bs Antigen Negative Hep B Core IgM Ab Negative Hepatitis C Ab (EIA) 0.1 12/15/18 08:05 WBC RBC Hgb Hct MCV MCH MCHC RDW Plt Count MPV Sodium Potassium Chloride Carbon Dioxide Anion Gap BUN Creatinine Est GFR (CKD-EPI)AfAm Est GFR (CKD-EPI)NonAf Random Glucose Calcium Ferritin 16.6 Total Bilirubin AST ALT Alkaline Phosphatase Total Protein Albumin TSH Hep A IgM Ab Confirm Hep Bs Antigen Hep B Core IgM Ab Hepatitis C Ab (EIA) Active Medications Generic Name Dose Route Start Last Admin Trade Name Freq PRN Reason Stop Dose Admin Heparin Sodium (Porcine) 5,000 unit 12/15/18 22:00 Heparin - SQ TID CHRISSY Sodium Chloride 1,000 mls @ 75 mls/hr 12/13/18 07:45 12/15/18 06:33 Normal Saline - IV 75 mls/hr ASDIR CHRISSY Administration Ondansetron HCl 4 mg 12/13/18 07:40 12/13/18 11:43 Zofran Injection IVPUSH 4 mg Q6H PRN Administration NAUSEA Pantoprazole Sodium 40 mg 12/15/18 10:00 12/15/18 11:01 Protonix Iv IVPUSH 40 mg DAILY CHRISSY Administration ASSESSMENT/PLAN: 48 YO F with PMH of GERD and 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 She has had similar episodes over the past one year, but pain usually resolves after vomiting. This time the pain persisted, prompting her to visit the ER. # RUQ pain - CTA: thickening in cecum & asc. colon, suggestive of colitis, no embolus in mesenteric vessels, no diverticulitis, pericholecystic fluid noted. - GI consulted: UGIS ordered, CPK ordered to check for rhabdo, avoid Tylenol due to LFTs, possible colonoscopy outpatient, possible elective cholecystectomy - US Abdomen: GB sludge with sludge ball vs polyp 1.5 x 0.6, no evidence of cholecystitis, can not rule out stone - HIDA: no evidence of cystic duct obstruction, CBD occlusion vs Sphincter of Oddi spasm - Zofran PRN for nausea, Morphine D/Sterling #Transaminitis - LFTs downtrending: AST 918-352, ALT 439-547, ALP 112-106 #Thyroid Nodule - TSH normal #Bradycardia: - second EKG: NSR, TWI no longer seen in anteroseptal leads #Anemia - Ferritin: 16.6 N Fe studies: Fe 14 L TIBC 326 N, Fe Saturation 4 L, Unsaturated IBC 312 H #FEN - NS@75mls/hr - Clears #DVT ID - SCDs Visit type - Emergency Visit Emergency Visit: Yes ED Registration Date: 12/13/18 Care time: The patient presented to the Emergency Department on the above date and was hospitalized for further evaluation of their emergent condition. - New Patient This patient is new to me today: No - Critical Care Critical Care patient: No - Discharge Referral Referred to [facility] Med P.C.: No ATTENDING PHYSICIAN STATEMENT I saw and evaluated the patient. I reviewed the resident's note and discussed the case with the resident. I agree with the resident's findings and plan as documented. SUBJECTIVE: OBJECTIVE: ASSESSMENT AND PLAN:
--- NOTE | 2018-12-15 17:22 | CON.GI ---
Consult Consult Specialty:: GI Referred by:: Hospitalist Service Reason for Consultation:: Upper abdominal pain, nausea, vomiting - History of Present Illness Chief Complaint: Upper abdominal pain, nausea, vomiting History of Present Illness: 48M admitted [facility] for evaluation of progressively worse upper abdominal pain associated with nausea and vomiting. She states that she has been having similar episodes in the past for about a year now. The nausea and vomiting seems to be post prandial. 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 She has been given "an acid pill" for her complaints. She was noted to have a leukocysotis on admission with elevated transaminases. She has never had a colonoscopy. Work-up here included and abdominal US that revealed sludge vs. 1.5cm gallbladder polyp and small stones could not be ruled out. The biliary tract was not dilated. She Had a CTA of the A/P that revealed slight hyperemia of the GB wall and question of pericholecystic fluid as well as ? colitis / right colon thickening. A follow-up HIDA scan revealed filling of the gallbladder with delayed excretion of tracer through the biliary tract. This led to a follow-up MRCP. MRCP images were degregated by motion artifact and a 1.4cm hepatic hypodensity was noted for which the radiologist advised a follow- up contrast MRI. Transaminases were elevated on admission. Acute hepatitis serologies were sent and were unrevealing. They seem to be improving without intervention. She denies fevers, chills, diarrhea, rectal bleeding, change in bowel habits, melena. She denies unintentional weight loss. She denies a history of liver disease. She does recall being told of anemia and her menstrual periods have been heavier of late. - History Source History Provided By: Patient, Medical Record - Past Medical History ...LMP: 12/09/18 Additional Medical History: Denies - Past Surgical History Past Surgical History: Yes: Appendectomy - Alcohol/Substance Use Hx Alcohol Use: Yes (Social) History of Substance Use: reports: None - Smoking History Smoking history: Never smoked - Social History Usual Living Arrangement: With Spouse ADL: Independent Place of : Other (Citizen Of [place]) Came to [place]year[place] 1988 History of Recent Travel: No Home Medications - Allergies Allergies/Adverse Reactions: Allergies Allergy/AdvReac Type Severity Reaction Status Date / Time No Known Allergies Allergy Verified 12/13/18 01:47 - Home Medications Home Medications: Ambulatory Orders Acetaminophen [Tylenol .Extra-Strength -] 1 - 2 tab PO WEEKLY PRN 12/14/18 Calcium Carb/Magnesium Hydrox [Rolaids Chewable Tablet] 1 tab PO DAILY PRN 12/14 Ibuprofen [Motrin Ib] 1 tab PO WEEKLY PRN 12/14/18 Family Disease History - Family Disease History Family Disease History: Other: Father (: 80. H/O Lung ca and Colon Ca), Mother (Alive: healthy), Brother (4, 1 age 3 in MVA), Sister (6, healthy), Son (1, healthy), Daughter (1, healthy) Review of Systems - Review of Systems Constitutional: denies: Loss of Appetite, Unintentional Wgt. Loss Cardiovascular: denies: Chest Pain Respiratory: denies: SOB Gastrointestinal: reports: Abdominal Pain, Nausea, Vomiting. denies: Constipation, Diarrhea, Dysphagia, Indigestion, Melena, Rectal Bleeding, Vomiting Blood Physical Exam-GI Vital Signs: Vital Signs Temperature 97.5 F L 12/15/18 14:58 Pulse Rate 64 12/15/18 14:58 Respiratory Rate 18 12/15/18 14:58 Blood Pressure 122/69 12/15/18 14:58 O2 Sat by Pulse Oximetry (%) 98 12/15/18 09:00 Constitutional: Yes: Calm Eyes: No: Sclera Icterus Cardiovascular: Yes: Regular Rate and Rhythm. No: Murmur Respiratory: Yes: CTA Bilaterally Gastrointestinal Inspection: Yes: Scars (RLQ scar) ...Auscultate: Yes: Normoactive Bowel Sounds ...Palpate: Yes: Soft, Tenderness (Mild Epigastric TTP). No: Guarding, Hepatomegaly, Splenomegaly ...Percussion: No: Tympanitic ...Rectal Exam: Yes: Other (Carbon Lamp Cleaner present: no external lesions, no masses, light dalton stool, guaiac negative) Edema: No (No LE edema) Neurological: Yes: Alert Labs: CBC, BMP 12/15/18 08:05 12/15/18 08:05 INR, PTT INR 1.10 (0.83-1.09) H 12/13/18 02:30 Problem List - Problems (1) Upper abdominal pain Assessment/Plan: ? biliary colic without cholecystitis, ? passage of small stones, ? Sphincter of oddi dysfunction (TII). LFT pattern not suggestive of biliary tract obstruction (also, was given morphine in the ED that can lead to decreased passage of HIDA tracer through biliary tract). Could recall surgery to discuss option of elective cholecystectomy Ordered UGIS for AM Ordered CPK to assess for rhabdo as alternate cause of transaminitis Outpatient follow-up to discuss colonoscopy. No colitis symptoms, gauaic negative and I do not think CTA findings of the colon explain her post prandial upper abdominal complaints. Ic Engineer evaluation of heavy menses Clear liquids Aviod hepatotoxic agents (was given dose of IV acetaminophen in ED x 1) Code(s): R10.10 - UPPER ABDOMINAL PAIN, UNSPECIFIED
[2018-12-15] MEDS: HEPARIN NA (PORCINE) 5,000 UNITS/ML 1ML VIAL SQ SCH (21:11)
[2018-12-16] MEDS: HEPARIN NA (PORCINE) 5,000 UNITS/ML 1ML VIAL SQ SCH (05:35)
[2018-12-16 08:17] LABS: HEMATOCRIT 27.5 % (32.4-45.2); HEMOGLOBIN 8.9 GM/dL (10.7-15.3); MCH 25.4 pg (25.7-33.7); MCHC 32.2 g/dl (32.0-36.0); MEAN CELL VOLUME 78.8 fl (80-96); MEAN PLT VOLUME 7.7 fl (7.5-11.1); PLATELET COUNT 273 K/MM3 (134-434); RDW 17.3 % (11.6-15.6)
[2018-12-16 08:53] LABS: ANION GAP 4 MMOL/L (8-16); BLOOD UREA NITROGEN 5.8 mg/dL (7-18); CALCIUM 8.2 mg/dL (8.5-10.1); CHLORIDE 115 mmol/L (98-107); CO2 26 mmol/L (21-32); CREATININE 0.6 mg/dL (0.55-1.3); GLUCOSE,RANDOM 76 mg/dL (74-106); POTASSIUM 4.2 mmol/L (3.5-5.1); SODIUM 145 mmol/L (136-145)
[2018-12-16] MEDS: PANTOPRAZOLE SODIUM 40 MG VIAL IVPUSH SCH (11:19)
[2018-12-16] MEDS: SODIUM CHLORIDE 1,000 ML IV SCH ×2 (11:20→22:01)
--- NOTE | 2018-12-16 13:52 | PN.GI ---
GI Progress Note Subjective: UGIS unrevealing Complains of RUQ pain She is afraid to eat, even clear liquids - Objective Vital Signs: Vital Signs Temperature 97.9 F 12/16/18 06:00 Pulse Rate 54 L 12/16/18 06:00 Respiratory Rate 18 12/16/18 06:00 Blood Pressure 121/64 12/16/18 06:00 O2 Sat by Pulse Oximetry (%) 98 12/15/18 09:00 Constitutional: Calm Eyes: No: Sclera Icterus Cardiovascular: Yes: Regular Rate and Rhythm Respiratory: Yes: CTA Bilaterally Gastrointestinal Inspection: No: Distention ...Auscultate: Yes: Normoactive Bowel Sounds ...Palpate: Yes: Soft, Tenderness (TTP RUQ > epigastrium). No: Tenderness, Rebound Edema: No (No LE edema) Neurological: Yes: Alert Labs: CBC, BMP 12/16/18 07:35 12/16/18 07:35 INR, PTT INR 1.10 (0.83-1.09) H 12/13/18 02:30 Hepatic Panel Total Bilirubin 0.9 mg/dL (0.2-1) 12/15/18 08:05 AST 141 U/L (15-37) H 12/15/18 08:05 ALT 374 U/L (13-61) H 12/15/18 08:05 Alkaline Phosphatase 88 U/L (45-117) 12/15/18 08:05 Albumin 3.2 g/dl (3.4-5.0) L 12/15/18 08:05 Problem List - Problems (1) Upper abdominal pain Assessment/Plan: LFTs improving, however, with continued RUQ / epigastric pain. ? if biliary colic, passage of small stones or sludge. Discussed with Dr. Daniel. He will be assessing her today for possible lap arash wednesday Will need outpatient colonoscopy and passenger representative follow-up\ Will need triple phase MRI of the abdomen with and without contrast for follow- up of liver nodule as outpatient Code(s): R10.10 - UPPER ABDOMINAL PAIN, UNSPECIFIED
--- NOTE | 2018-12-16 14:02 | PN ---
Physical Exam: SUBJECTIVE: Patient seen and examined by the bedside, AOx3, in no acute distress. OBJECTIVE: Vital Signs Period Temp Pulse Resp BP Sys/Freitas Pulse Ox Last 24 Hr 97.5 F-98.4 F 54-64 18-18 108-137/53-79 GENERAL: The patient is awake, alert, and fully oriented, in no acute distress. HEAD: Normal with no signs of trauma. EYES: PERRL, extraocular movements intact, sclera anicteric, conjunctiva clear. No ptosis. ENT: Ears normal, nares patent, oropharynx clear without exudates, moist mucous membranes. NECK: Trachea midline, full range of motion, supple, thyroid isthmus palpable LUNGS: Breath sounds equal, clear to auscultation bilaterally, no wheezes, no crackles, no accessory muscle use. HEART: Regular rate and rhythm, S1, S2 without murmur, rub or gallop. ABDOMEN: Soft, nondistended, mild epigastric tenderness, normoactive BS EXTREMITIES: 2+ pulses, warm, well-perfused. Swelling noted around IV insertion site on the right arm. NEUROLOGICAL: Cranial nerves II through XII grossly intact. Normal speech, gait not observed. PSYCH: Normal mood, normal affect. SKIN: Warm, dry, normal turgor, no rashes or lesions noted Laboratory Results - last 24 hr 12/16/18 12/16/18 07:35 07:35 WBC 5.0 RBC 3.50 L Hgb 8.9 L Hct 27.5 L MCV 78.8 L MCH 25.4 L MCHC 32.2 RDW 17.3 H Plt Count 273 MPV 7.7 Sodium 145 Potassium 4.2 Chloride 115 H Carbon Dioxide 26 Anion Gap 4 L BUN 5.8 L Creatinine 0.6 Est GFR (CKD-EPI)AfAm 125.80 Est GFR (CKD-EPI)NonAf 108.54 Random Glucose 76 Calcium 8.2 L Creatine Kinase 182 Creatine Kinase Index No Result Required. CK-MB (CK-2) < 1.0 Active Medications Generic Name Dose Route Start Last Admin Trade Name Freq PRN Reason Stop Dose Admin Heparin Sodium (Porcine) 5,000 unit 12/15/18 22:00 12/16/18 05:35 Heparin - SQ 5,000 unit TID CHRISSY Administration Sodium Chloride 1,000 mls @ 75 mls/hr 12/13/18 07:45 12/16/18 11:20 Normal Saline - IV 75 mls/hr ASDIR CHRISSY Administration Ondansetron HCl 4 mg 12/13/18 07:40 12/13/18 11:43 Zofran Injection IVPUSH 4 mg Q6H PRN Administration NAUSEA Pantoprazole Sodium 40 mg 12/15/18 10:00 12/16/18 11:19 Protonix Iv IVPUSH 40 mg DAILY CHRISSY Administration ASSESSMENT/PLAN: 48 YO F with PMH of GERD and 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 She has had similar episodes over the past one year, but pain usually resolves after vomiting. This time the pain persisted, prompting her to visit the ER. # RUQ pain - Surgery (Dr. Daniel); Cholecystectomy scheduled for Wednesday - UGIS: No acute pathology - CTA: thickening in cecum & asc. colon, suggestive of colitis, no embolus in mesenteric vessels, no diverticulitis, pericholecystic fluid noted. - GI (Dr. Villafana): LFTs improving, continued RUQ / epigastric pain, possible passage of small stones or sludge/ outpatient triple phase MRI of the abdomen with and without contrast for follow-up of liver nodule as outpatient - US Abdomen: GB sludge with sludge ball vs polyp 1.5 x 0.6, no evidence of cholecystitis, can not rule out stone - HIDA: no evidence of cystic duct obstruction, CBD occlusion vs Sphincter of Oddi spasm - Zofran PRN for nausea, Morphine D/Sterling #Transaminitis - LFTs downtrending #Thyroid Nodule - TSH normal #Bradycardia: - second EKG: NSR, TWI no longer seen in anteroseptal leads #Anemia - Ferritin: 16.6 N Fe studies: Fe 14 L TIBC 326 N, Fe Saturation 4 L, Unsaturated IBC 312 H #FEN - NS@75mls/hr - Clears #DVT SC - SCDs Visit type - Emergency Visit Emergency Visit: Yes ED Registration Date: 12/13/18 Care time: The patient presented to the Emergency Department on the above date and was hospitalized for further evaluation of their emergent condition. - New Patient This patient is new to me today: No - Critical Care Critical Care patient: No - Discharge Referral Referred to [facility] Med P.C.: No ATTENDING PHYSICIAN STATEMENT I saw and evaluated the patient. I reviewed the resident's note and discussed the case with the resident. I agree with the resident's findings and plan as documented. SUBJECTIVE: OBJECTIVE: ASSESSMENT AND PLAN:
--- NOTE | 2018-12-16 17:34 | PN ---
Teaching Attending Note Name of Resident: Iraj Chairez ATTENDING PHYSICIAN STATEMENT I saw and evaluated the patient. I reviewed the resident's note and discussed the case with the resident. I agree with the resident's findings and plan as documented. SUBJECTIVE: No fever or chills. No AH . abd pain in RUQ . No vomiting today OBJECTIVE: NAD. MMM. Cv: RRR, no MRG Lungs: CATB Ext : No edema or erythema Abd: soft, ND, TTP in epigastric area and RUQ. Neg Do's. no rebound tenderness ASSESSMENT AND PLAN: 48 y/o lady with h/o chronic postprandial abd pain, anemia, gastritis who presented with worsening RUQ pain that did not resolve. 1- RUQ pain. MRI reviewed. case d/w Dr. fabian. for CCY on Wednesday resume liquid diet hold off fluids now 2- Chronic postprandial abd pain: -last EGD report form 04/12 was obtained and reviewed. showed gastritis with normal duodenum - continued eval as out pt 3- Chronic microcytic anemia. 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 will need f/u with triple phase MRI as outpt DVT PX: heparin SQ
[2018-12-17 03:12] LABS: HEP B CORE AB, TOT Positive (Negative)
[2018-12-17 07:16] LABS: HEMATOCRIT 28.3 % (32.4-45.2); HEMOGLOBIN 9.2 GM/dL (10.7-15.3); MCH 25.6 pg (25.7-33.7); MCHC 32.5 g/dl (32.0-36.0); MEAN CELL VOLUME 78.9 fl (80-96); MEAN PLT VOLUME 7.7 fl (7.5-11.1); PLATELET COUNT 266 K/MM3 (134-434); RBC 3.59 M/mm3 (3.60-5.2); RDW 17.4 % (11.6-15.6); WHITE BLOOD COUNT 4.6 K/mm3 (4.0-10.0)
[2018-12-17 07:27] LABS: BLOOD UREA NITROGEN 5.1 mg/dL (7-18); CALCIUM 8.4 mg/dL (8.5-10.1); CREATININE 0.6 mg/dL (0.55-1.3); POTASSIUM 3.4 mmol/L (3.5-5.1)
[2018-12-17 08:54] LABS: ALBUMIN 3.2 g/dl (3.4-5.0); BILIRUBIN,DIRECT 0.2 mg/dL (0.0-0.2); BILIRUBIN,TOTAL 0.8 mg/dL (0.2-1)
[2018-12-17] MEDS: ONDANSETRON 4 MG/2 ML VIAL IVPUSH PRN (09:40)
[2018-12-17] MEDS: PANTOPRAZOLE SODIUM 40 MG VIAL IVPUSH SCH (09:43)
[2018-12-17] MEDS: SODIUM CHLORIDE 1,000 ML IV SCH ×2 (09:56→14:43)
--- NOTE | 2018-12-17 10:36 | PN ---
Teaching Attending Note Name of Resident: Iraj Chairez ATTENDING PHYSICIAN STATEMENT I saw and evaluated the patient. I reviewed the resident's note and discussed the case with the resident. I agree with the resident's findings and plan as documented. SUBJECTIVE: No fever or chills. No ARCE. passed gas , vomiting after food. no BM . abd pain is the same in RUQ OBJECTIVE: NAD. MMM. Cv: RRR, no MRG Lungs: CATB Ext : No edema or erythema Abd: soft, ND, TTP in epigastric area and RUQ. no rebound tenderness or guarding ASSESSMENT AND PLAN: 48 y/o lady with h/o chronic postprandial abd pain, anemia, gastritis who presented with worsening RUQ pain that did not resolve. 1- RUQ pain. for CCY on Wednesday cont liquid diet Uppper GI series reviewed. for hypokalemia, will replete K 2- Chronic postprandial abd pain: - continued eval as out pt 3- Chronic microcytic anemia. 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 will need f/u with triple phase MRI as outpt DVT PX: heparin SQ
--- NOTE | 2018-12-17 10:56 | PN ---
Physical Exam: SUBJECTIVE: Patient seen and examined by the bedside, AOx3 OBJECTIVE: Vital Signs Period Temp Pulse Resp BP Sys/Freitas Pulse Ox Last 24 Hr 98.4 F-98.8 F 55-64 18-20 118-129/50-74 98-99 GENERAL: The patient is awake, alert, and fully oriented, in no acute distress. HEAD: Normal with no signs of trauma. EYES: PERRL, extraocular movements intact, sclera anicteric, conjunctiva clear. No ptosis. ENT: Ears normal, nares patent, oropharynx clear without exudates, moist mucous membranes. NECK: Trachea midline, full range of motion, supple, thyroid isthmus palpable LUNGS: Breath sounds equal, clear to auscultation bilaterally, no wheezes, no crackles, no accessory muscle use. HEART: Regular rate and rhythm, S1, S2 without murmur, rub or gallop. ABDOMEN: Soft, nondistended, mild epigastric tenderness, normoactive BS EXTREMITIES: 2+ pulses, warm, well-perfused. Swelling noted around IV insertion site on the right arm. NEUROLOGICAL: Cranial nerves II through XII grossly intact. Normal speech, gait not observed. PSYCH: Normal mood, normal affect. SKIN: Warm, dry, normal turgor, no rashes or lesions noted Laboratory Results - last 24 hr 12/16/18 12/17/18 12/17/18 07:35 06:00 06:00 WBC 4.6 RBC 3.59 L Hgb 9.2 L Hct 28.3 L MCV 78.9 L MCH 25.6 L MCHC 32.5 RDW 17.4 H Plt Count 266 MPV 7.7 Sodium 143 Potassium 3.4 L Chloride 111 H Carbon Dioxide 27 Anion Gap 5 L BUN 5.1 L Creatinine 0.6 Est GFR (CKD-EPI)AfAm 125.80 Est GFR (CKD-EPI)NonAf 108.54 Random Glucose 76 Calcium 8.4 L Total Bilirubin 0.8 Direct Bilirubin 0.2 AST 36 ALT 204 H Alkaline Phosphatase 78 Total Protein 6.0 L Albumin 3.2 L Hep Bs Antibody Reactive Hep B Core Total Ab Positive H Active Medications Generic Name Dose Route Start Last Admin Trade Name Freq PRN Reason Stop Dose Admin Heparin Sodium (Porcine) 5,000 unit 12/15/18 22:00 12/16/18 05:35 Heparin - SQ 5,000 unit TID CHRISSY Administration Sodium Chloride 1,000 mls @ 75 mls/hr 12/13/18 07:45 12/17/18 09:56 Normal Saline - IV Not Given ASDIR CHRISSY Potassium Chloride 10 meq in 100 mls @ 100 mls/hr 12/17/18 10:30 Potassium Chloride 10 Meq Premix Ivpb - IVPB 12/17/18 12:29 Q60M CHRISSY Ondansetron HCl 4 mg 12/13/18 07:40 12/17/18 09:40 Zofran Injection IVPUSH 4 mg Q6H PRN Administration NAUSEA Pantoprazole Sodium 40 mg 12/15/18 10:00 12/17/18 09:43 Protonix Iv IVPUSH 40 mg DAILY CHRISSY Administration ASSESSMENT/PLAN: 48 YO F with PMH of GERD and nerve impingement presented to the ER with complaints of RUQ abdominal pain associated with nausea and vomiting after eating for the past 1 year. She is currently scheduled for a cholecystectomy on Wednesday. # RUQ pain - Surgery (Dr. Daniel); Cholecystectomy scheduled for Wednesday - GI (Dr. Villafana): possible passage of small stones or sludge/ outpatient triple phase MRI of the abdomen w/wo contrast for FU of liver nodule - UGIS: No acute pathology - CTA: thickening in cecum & asc. colon, suggestive of colitis, no embolus in mesenteric vessels - HIDA: no evidence of cystic duct obstruction, CBD occlusion vs Sphincter of Oddi spasm - US Abdomen: GB sludge with sludge ball vs polyp 1.5 x 0.6, no evidence of cholecystitis, can not rule out stone - Protonix 40mg IV, Zofran 4mg Q6 #Transaminitis - LFTs downtrending #Thyroid Nodule - TSH normal #Bradycardia: - second EKG: NSR, TWI no longer seen in anteroseptal leads #Anemia - Ferritin: 16.6 N Fe studies: Fe 14 L TIBC 326 N, Fe Saturation 4 L, Unsaturated IBC 312 H #FEN - K3.4, given 10meq IV x2 - NS@75mls/hr - Clears #DVT CO - SCDs Visit type - Emergency Visit Emergency Visit: Yes ED Registration Date: 12/13/18 Care time: The patient presented to the Emergency Department on the above date and was hospitalized for further evaluation of their emergent condition. - New Patient This patient is new to me today: No - Critical Care Critical Care patient: No - Discharge Referral Referred to [facility] Med P.C.: No ATTENDING PHYSICIAN STATEMENT I saw and evaluated the patient. I reviewed the resident's note and discussed the case with the resident. I agree with the resident's findings and plan as documented. SUBJECTIVE: OBJECTIVE: ASSESSMENT AND PLAN:
--- NOTE | 2018-12-17 11:02 | PN ---
Progress Note (short form) - Note Progress Note: Attending Surgeon No c/o today; tolerating a diet VSS AF abdo-soft; non tender WBC-nl IMP:improved PLAN: lap arash possible open 12/19/18; r/b/t/a's d/w the patient who is amenable to same. Naseem Daniel MD FACS
[2018-12-17] MEDS: KCL 10 MEQ IVPB 10 MEQ/100 ML INFUS.BAG IVPB SCH ×2 (11:51→14:45)
[2018-12-17] MEDS: HEPARIN NA (PORCINE) 5,000 UNITS/ML 1ML VIAL SQ SCH ×2 (14:46→22:18)
--- NOTE | 2018-12-17 15:05 | PN.GI ---
GI Progress Note Subjective: patient tolerating clear liquids, postpranidial abdominal pain, LFTS normalized - Objective Vital Signs: Vital Signs Temperature 98.8 F 12/17/18 08:42 Pulse Rate 56 L 12/17/18 08:42 Respiratory Rate 20 12/17/18 08:42 Blood Pressure 123/74 12/17/18 08:42 O2 Sat by Pulse Oximetry (%) 99 12/17/18 09:11 Constitutional: Well Nourished Eyes: Yes: Conjunctiva Clear, Occular Prosthesis Neck: Yes: Supple Cardiovascular: Yes: Regular Rate and Rhythm Respiratory: Yes: CTA Bilaterally ...Palpate: Yes: Soft. No: Firm/Rigid, Guarding, Hepatomegaly, Mass, Pulsatile Mass, Splenomegaly, Tenderness Labs: CBC, BMP 12/17/18 06:00 12/17/18 06:00 INR, PTT INR 1.10 (0.83-1.09) H 12/13/18 02:30 Problem List - Problems (1) Cholelithiases Assessment/Plan: --biliary colic R> for cholecystectomy Wednesday Code(s): K80.20 - CALCULUS OF GALLBLADDER W/O CHOLECYSTITIS W/O OBSTRUCTION Qualifiers: Cholelithiasis location: other site Biliary obstruction: without biliary obstruction Qualified Code(s): K80.80 - Other cholelithiasis without obstruction
[2018-12-18] MEDS: SODIUM CHLORIDE 1,000 ML IV SCH ×2 (06:23→07:45)
[2018-12-18] MEDS: HEPARIN NA (PORCINE) 5,000 UNITS/ML 1ML VIAL SQ SCH ×2 (06:39→14:55)
[2018-12-18] MEDS: PANTOPRAZOLE SODIUM 40 MG VIAL IVPUSH SCH (10:09)
--- NOTE | 2018-12-18 14:34 | PN ---
Progress Note (short form) - Note Progress Note: Subjective: no fever or chills. Abd pain is better today Objective: Vital Signs: Last Vital Signs Temp Pulse Resp BP Pulse Ox 98.3 F 55 L 20 110/72 99 12/17/18 22:16 12/18/18 10:00 12/18/18 10:00 12/18/18 10:00 12/17/18 09:11 Physical Exam: NAD. MMM. Cv: RRR, no MRG Lungs: CATB Ext : No edema or erythema Abd: soft, ND, TTP in epigastric area and RUQ. no rebound tenderness or guarding ASSESSMENT AND PLAN: 48 y/o lady with h/o chronic postprandial abd pain, anemia, gastritis who presented with worsening RUQ pain that did not resolve. 1- RUQ pain. for CCY on Wednesday cont liquid diet . NPO after MN - replete K resume IVF after MN 2- Chronic postprandial abd pain: - continued eval as out pt 3- Chronic microcytic anemia. 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 will need f/u with triple phase MRI as outpt DVT PX: heparin SQ Visit type - Emergency Visit Emergency Visit: Yes ED Registration Date: 12/13/18 Care time: The patient presented to the Emergency Department on the above date and was hospitalized for further evaluation of their emergent condition. - New Patient This patient is new to me today: No - Critical Care Critical Care patient: No
[2018-12-18] MEDS: KCL 10 MEQ IVPB 10 MEQ/100 ML INFUS.BAG IVPB SCH ×2 (14:57→17:11)
[2018-12-19] MEDS ORDERED: SODIUM CHLORIDE 1,000 ML IV SCH (01:00)
[2018-12-19 08:02] LABS: ALBUMIN 3.1 g/dl (3.4-5.0); BILIRUBIN,TOTAL 0.8 mg/dL (0.2-1); BLOOD UREA NITROGEN 4.2 mg/dL (7-18); CALCIUM 8.5 mg/dL (8.5-10.1); CREATININE 0.7 mg/dL (0.55-1.3); POTASSIUM 3.4 mmol/L (3.5-5.1); TOT PROT 5.9 g/dl (6.4-8.2)
[2018-12-19] MEDS: PANTOPRAZOLE SODIUM 40 MG VIAL IVPUSH SCH (09:47)
[2018-12-19] MEDS ORDERED: BUPIVACAINE HCL/PF 0.5% (5 MG/ML) 30 ML VIAL IJ ONE ×2 (11:38→13:20)
[2018-12-19] MEDS ORDERED: ROCURONIUM BROMIDE 50 MG/5 ML SYRINGE ONE ×2 (11:58→13:03)
[2018-12-19] MEDS ORDERED: MIDAZOLAM HCL 2 MG/2 ML SINGLE DOSE VIAL ONE (11:58)
[2018-12-19] MEDS ORDERED: PROPOFOL 20 ML ONE (11:58)
[2018-12-19] MEDS ORDERED: LIDOCAINE HCL/PF 2% SDV 5ML VIAL ONE (11:58)
[2018-12-19] MEDS ORDERED: ceFAZolin SODIUM 1 GM VIAL ONE (12:26)
[2018-12-19] MEDS ORDERED: ceFAZolin SODIUM 1 GM VIAL IVPB ONE (12:28)
[2018-12-19] MEDS ORDERED: DEXAMETHASONE SOD PHOSPHATE 4 MG/1 ML VIAL ONE (12:35)
[2018-12-19] MEDS ORDERED: NEOSTIGMINE METHYLSULFATE 0.5 MG/ML - 10 ML MDV ONE (13:06)
[2018-12-19] MEDS ORDERED: GLYCOPYRROLATE 0.2 MG/1 ML VIAL ONE (13:06)
[2018-12-19] MEDS ORDERED: KETOROLAC TROMETHAMINE 30 MG/1 ML VIAL ONE (13:08)
[2018-12-19] MEDS ORDERED: oxyCODONE HCL 5 MG TABLET PO PRN ×2 (13:48→13:49)
[2018-12-19] MEDS ORDERED: ONDANSETRON 4 MG/2 ML VIAL IVPUSH PRN (13:52)
--- NOTE | 2018-12-19 13:55 | OP ---
Operative Note - Note: Operative Date: 12/19/18 Pre-Operative Diagnosis: cholelithiasis Surgeon: Naseem Daniel Revolving Field Assembler: Kacie Hernandez Anesthesiologist/VISUAL MERCHANDISING COORDINATOR: Corrina Altamirano Anesthesia: General Specimens Removed: gallbladder Estimated Blood Loss (mls): 10 Fluid Volume Replaced (mls): 400 Operative Report Dictated: Yes
--- NOTE | 2018-12-19 13:57 | SURG ---
Surgery Flatwork Finisher Note Flatwork Finisher: Kacie Hernandez PA-C Date of Service: 12/19/18 Diagnosis: cholelithiasis Procedure: laparoscopic cholecystectomy I was present for the entirety of the operative procedure. For further detail, please refer to operative report. Visit type - Case Type Case Type: ED Admission - Emergency Emergency Visit: Yes ED Registration Date: 12/13/18 Care time: The patient presented to the Emergency Department on the above date and was hospitalized for further evaluation of their emergent condition. - New patient This patient is new to me today: Yes Date on this admission: 12/19/18
[2018-12-19] MEDS ORDERED: LACTATED RINGERS SOLUTION 1,000 ML IV SCH (14:00)
--- NOTE | 2018-12-19 15:36 | PN ---
Physical Exam: SUBJECTIVE: Patient seen and examined at the bedside, there were no acute events overnight. Patient states her abdominal pain is improving and she is scheduled for the OR today. No episodes of vomiting overnight. OBJECTIVE: Vital Signs Period Temp Pulse Resp BP Sys/Freitas Pulse Ox Last 24 Hr 98 F-99.1 F 52-58 16-20 109-144/58-88 100-100 GENERAL: The patient is awake, alert, and fully oriented, in no acute distress. HEAD: Normal with no signs of trauma. EYES: PERRL, extraocular movements intact, sclera anicteric, conjunctiva clear. No ptosis. ENT: Ears normal, nares patent, oropharynx clear without exudates, moist mucous membranes. NECK: Trachea midline, full range of motion, supple. LUNGS: Breath sounds equal, clear to auscultation bilaterally, no wheezes, no crackles, no accessory muscle use. HEART: Regular rate and rhythm, S1, S2 without murmur, rub or gallop. ABDOMEN: normoactive bowel sounds, soft, tender to palpation on the RUQ region, nondistended, no guarding, no rebound. EXTREMITIES: 2+ pulses, warm, well-perfused, no edema. NEUROLOGICAL: Cranial nerves II through XII grossly intact. Normal speech, gait not observed. PSYCH: Normal mood, normal affect. SKIN: Warm, dry, normal turgor, no rashes or lesions noted Laboratory Results - last 24 hr 12/19/18 06:55 Sodium 142 Potassium 3.4 L Chloride 110 H Carbon Dioxide 26 Anion Gap 6 L BUN 4.2 L Creatinine 0.7 Est GFR (CKD-EPI)AfAm 119.58 Est GFR (CKD-EPI)NonAf 103.18 Random Glucose 79 Calcium 8.5 Total Bilirubin 0.8 AST 18 ALT 118 H Alkaline Phosphatase 68 Total Protein 5.9 L Albumin 3.1 L Active Medications Generic Name Dose Route Start Last Admin Trade Name Freq PRN Reason Stop Dose Admin Acetaminophen 650 mg 12/19/18 17:00 Tylenol - PO 12/20/18 11:01 Q6H CHRISSY Fentanyl 50 mcg 12/19/18 13:52 Sublimaze Injection - IVPUSH [id number] PRN PAIN-PACU ORDER X 4 DOSES ONLY Lactated Ringer's 1,000 mls @ 125 mls/hr 12/19/18 14:00 Lactated Ringers Solution IV ASDIR CHRISSY Sodium Chloride 1,000 mls @ 83 mls/hr 12/19/18 13:53 Normal Saline - IV ASDIR CHRISSY Ondansetron HCl 4 mg 12/19/18 13:52 Zofran Injection IVPUSH Q6H PRN NAUSEA AND/OR VOMITING Oxycodone HCl 5 mg 12/19/18 13:48 Roxicodone - PO Q6H PRN PAIN LEVEL 1-5 Oxycodone HCl 10 mg 12/19/18 13:49 Roxicodone - PO Q6H PRN PAIN LEVEL 6-10 ASSESSMENT/PLAN: 48 YO F with PMH of GERD and nerve impingement presented to the ER with complaints of RUQ abdominal pain associated with nausea and vomiting after eating for the past 1 year. She is currently scheduled for a cholecystectomy today. # RUQ pain- likely 2/2/ acute cholecystitis - Imaging: - UGIS: No acute pathology - CTA: thickening in cecum & asc. colon, suggestive of colitis, no embolus in mesenteric vessels - HIDA: no evidence of cystic duct obstruction, CBD occlusion vs Sphincter of Oddi spasm - US Abdomen: GB sludge with sludge ball vs polyp 1.5 x 0.6, no evidence of cholecystitis, can not rule out stone - Surgery on board (Dr. Daniel) appreciate recommendations: Cholecystectomy scheduled for Wednesday - GI (Dr. Villafana) following, appreciate recommendations: possible passage of small stones or sludge as cause of current symptoms. Patient also requires outpatient triple phase MRI of the abdomen w/wo contrast for FU of liver nodule found on abdominal MRI - Protonix 40mg IV, Zofran 4mg Q6 # Chronic post-prandial abdominal pain- underlying cause unclear, however patient is otherwise medically stable and this problem can be worked up on a non -emergent, outpatient basis. - Follow up with GI as outpatient #Transaminitis - LFTs downtrending - Repeat CMP post-operatively #Thyroid Nodule - TSH normal - F/U with contractor field hauling as outpatient for u/s and bx if necessary #Bradycardia: Resolved - second EKG: NSR, TWI no longer seen in anteroseptal leads #Anemia - likely 2/2 heavy menses vs. diet - Ferritin: 16.6 N Fe studies: Fe 14 L TIBC 326 N, Fe Saturation 4 L, Unsaturated IBC 312 H - FOBT: pending patient having a BM - Outpatient CAGE CLERK follow up - Iron supplementation on discharge #FEN - K3.4, given 10meq IV x2 yesterday, repeat CMP in AM - LR@125mls/hr - NPO, can resume clears and then normal diet post-operatively #DVT SD - SCDs, early ambulaiton Dispo: Patient is medically stable and scheduled for surgery today. Will observe for 1 day post-operatively. Patient can likely be discharged home tomorrow. Visit type - Emergency Visit Emergency Visit: Yes ED Registration Date: 12/13/18 Care time: The patient presented to the Emergency Department on the above date and was hospitalized for further evaluation of their emergent condition. - New Patient This patient is new to me today: Yes Date on this admission: 12/19/18 - Critical Care Critical Care patient: No ATTENDING PHYSICIAN STATEMENT I saw and evaluated the patient. I reviewed the resident's note and discussed the case with the resident. I agree with the resident's findings and plan as documented. SUBJECTIVE: OBJECTIVE: ASSESSMENT AND PLAN:
--- NOTE | 2018-12-19 15:50 | PN ---
Teaching Attending Note Name of Resident: Ioana Ye ATTENDING PHYSICIAN STATEMENT I saw and evaluated the patient. I reviewed the resident's note and discussed the case with the resident. I agree with the resident's findings and plan as documented. SUBJECTIVE: seen in am , before her sx. OBJECTIVE: NAD. MMM. Cv: RRR, no MRG Lungs: CATB Ext : No edema or erythema Abd: soft, ND, TTP in epigastric area and RUQ. no rebound tenderness or guarding ASSESSMENT AND PLAN: 48 y/o lady with h/o chronic postprandial abd pain, anemia, gastritis who presented with worsening RUQ pain that did not resolve. 1- RUQ pain. s/p cholecystectomy regular diet IVF for now 2- Chronic postprandial abd pain: - continued eval as out pt 3- Chronic microcytic anemia. 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 will need f/u with triple phase MRI as outpt DVT PX: heparin SQ Possible dc tomorrow if she does well .
[2018-12-19] MEDS: ACETAMINOPHEN 325 MG TABLET (FP) PO SCH ×2 (18:37→23:54)
[2018-12-19] MEDS: SODIUM CHLORIDE 1,000 ML IV SCH (18:39)
[2018-12-20] MEDS: SODIUM CHLORIDE 1,000 ML IV SCH ×2 (01:27→13:52)
[2018-12-20] MEDS: ACETAMINOPHEN 325 MG TABLET (FP) PO SCH ×2 (05:18→10:44)
--- NOTE | 2018-12-20 07:36 | PN ---
Progress Note (short form) - Note Progress Note: POD 1, s/p Lap arash Pt seen and examined. Reports no issues overnight. Has some abdominal pain, controlled with pain meds. Has been oob to the restroom. Reports some abdominal pressure/pain with urination, denies dysuria. Tolerating PO (solid meals), no n/ v. Passing flatus this AM. Denies cp/sob. Vital Signs Temp 99.3 F 12/20/18 07:03 Pulse 59 L 12/20/18 07:03 Resp 18 12/20/18 07:03 BP 98/50 L 12/20/18 07:03 Pulse Ox 100 12/19/18 21:00 Intake & Output 12/19/18 12/19/18 12/20/18 11:59 23:59 11:59 Intake Total 500 700 900 Output Total 10 Balance 500 690 900 Intake: IV 500 700 900 Normal Saline - 1,000 ml 500 @ 83 mls/hr IV ASDIR CHRISSY Rx#:[id number] Normal Saline - 1,000 ml 900 @ 83 mls/hr IV ASDIR CHRISSY Rx#:[id number] Output: Estimated Blood Loss 10 Other: Voiding Method Toilet Toilet # Unmeasured Voids Void 1 2 1 Bowel Movement No No CBC, BMP 12/17/18 06:00 12/19/18 06:55 Gen: awake, alert, nad Abdo: soft, +ttp in epigastric region (at site of incision), dressings c/d/i. + bowel sounds A/P: 48 y/o F w/ PMHx gastritis, pinched nerves in neck a/w abdominal pain/ nausea/vomiting, found to have cholelithiasis, now POD 1 s/p lap arash. afebrile, vss AM labs pending -F/U AM labs -Pain control -OOB ad karla -Regular diet as tolerated -Pt should f/u in the office in 7-10 days d/w attending Dr Daniel
[2018-12-20 08:03] LABS: HEMATOCRIT 26.4 % (32.4-45.2); HEMOGLOBIN 8.6 GM/dL (10.7-15.3); MCH 25.4 pg (25.7-33.7); MCHC 32.7 g/dl (32.0-36.0); MEAN CELL VOLUME 77.9 fl (80-96); MEAN PLT VOLUME 8.3 fl (7.5-11.1); PLATELET COUNT 237 K/MM3 (134-434); RBC 3.39 M/mm3 (3.60-5.2); RDW 17.5 % (11.6-15.6)
[2018-12-20 08:13] LABS: ALBUMIN 2.9 g/dl (3.4-5.0); BILIRUBIN,TOTAL 0.5 mg/dL (0.2-1); BLOOD UREA NITROGEN 6.5 mg/dL (7-18); CALCIUM 8.3 mg/dL (8.5-10.1); CREATININE 0.7 mg/dL (0.55-1.3); POTASSIUM 3.5 mmol/L (3.5-5.1); TOT PROT 5.4 g/dl (6.4-8.2)
--- NOTE | 2018-12-20 08:23 | PN ---
Progress Note (short form) - Note Progress Note: Anesthesiology Post-op 48 y.o. woman POD #1 s/p Laparoscopic Cholecystectomy under GA. Pt. doing well this AM. Pain well-controlled with meds. Tolerating PO. VSS. No apparent anesthesia-related issues. 48 y.o. with stable post-operative course. Continue management as per primary team.
--- NOTE | 2018-12-20 14:45 | PN ---
Teaching Attending Note Name of Resident: Radha Lopes ATTENDING PHYSICIAN STATEMENT I saw and evaluated the patient. I reviewed the resident's note and discussed the case with the resident. I agree with the resident's findings and plan as documented. SUBJECTIVE: no fever or chills. tolerated diet . was happy was able to eat solid food after months. minimal vomiting after breakfast OBJECTIVE: NAD. MMM. Cv: RRR, no MRG Lungs: CATB Ext : No edema or erythema Abd: soft, ND, TTP around surgical incisions . tape and steristrips over incisions ASSESSMENT AND PLAN: 48 y/o lady with h/o chronic postprandial abd pain, anemia, gastritis who presented with worsening RUQ pain that did not resolve. 1- RUQ pain. s/p CCY yesterday regular diet dc IVF f/u with sx as out pt 2- Chronic postprandial abd pain: - continued eval as out pt.? gastric emptying study . NOCTA evidence of stenosis or compressionof vessels 3- Chronic microcytic anemia. 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 will need f/u with triple phase MRI as outpt dc home today
[2018-12-20 15:43] VITALS: BP 111/76; PULSE 69; TEMP 99.2
--- NOTE | 2018-12-20 18:31 | DS ---
Physical Exam: SUBJECTIVE: Patient seen and examined at the bedside. POD #1 s/p cholecystectomy. There were no complications, or perforations reported. Patient is recovering well and tolerating a normal diet without vomiting. Patient reports pain is minimal. OBJECTIVE: Vital Signs Period Temp Pulse Resp BP Sys/Freitas Pulse Ox Last 24 Hr 98.7 F-99.3 F 59-69 18-18 98-111/50-76 98-100 PHYSICAL EXAM GENERAL: The patient is awake, alert, and fully oriented, in no acute distress. HEAD: Normal with no signs of trauma. EYES: PERRL, extraocular movements intact, sclera anicteric, conjunctiva clear. No ptosis. ENT: Ears normal, nares patent, oropharynx clear without exudates, moist mucous membranes. NECK: Trachea midline, full range of motion, supple. LUNGS: Breath sounds equal, clear to auscultation bilaterally, no wheezes, no crackles, no accessory muscle use. HEART: Regular rate and rhythm, S1, S2 without murmur, rub or gallop. ABDOMEN: normoactive bowel sounds, soft, tender to palpation on the RUQ region, nondistended, no guarding, no rebound. EXTREMITIES: 2+ pulses, warm, well-perfused, no edema. NEUROLOGICAL: Cranial nerves II through XII grossly intact. Normal speech, gait not observed. PSYCH: Normal mood, normal affect. SKIN: Warm, dry, normal turgor, no rashes or lesions noted LABS Laboratory Results - last 24 hr 12/20/18 12/20/18 06:55 06:55 WBC 8.0 RBC 3.39 L Hgb 8.6 L Hct 26.4 L MCV 77.9 L MCH 25.4 L MCHC 32.7 RDW 17.5 H Plt Count 237 MPV 8.3 Sodium 144 Potassium 3.5 Chloride 111 H Carbon Dioxide 26 Anion Gap 7 L BUN 6.5 L Creatinine 0.7 Est GFR (CKD-EPI)AfAm 119.58 Est GFR (CKD-EPI)NonAf 103.18 Random Glucose 100 Calcium 8.3 L Total Bilirubin 0.5 AST 28 ALT 95 H Alkaline Phosphatase 59 Total Protein 5.4 L Albumin 2.9 L HOSPITAL COURSE: Date of Admission:12/13/18 Ms. Olivares is a 48 year old woman with PMHx of GERD and nerve impingement who presented to the ED with complaints of RUQ abdominal pain associated with nausea and NBNB vomiting after eating. She reported that the post prandial vomiting had been ongoing for the past year however the symptoms had acutely worsened and localized to the RUQ. On abdominal US the patient was found to have GB sludge with sludge ball vs polyp 1.5x0.6 without evidence of cholecystitis. On HIDA scan there was no evidence of cystic duct obstruction however the patient did have elevated LFTs and physical exam findings concerning for passage of small stones or biliary sludge. Incidentally the patient was also found to have a liver nodule which is most likely 2/2 a hemangioma, but will need further outpatient workup. Patient had a cholecystectomy on 12/19/2018 which was uncomplicated without any evidence of perforation. Post-operatively the patient was greatly improved and was able to tolerate a normal diet. She was discharged with instructions to follow up in the primary care resident clinic and later with her regular PCP. She was also given instructions to follow up with GI as the more chronic component of her symptoms (post prandial vomiting, liver nodule) cannot be explained by her GB alone. Patient was also instructed to follow up with OBGYN as she was found to have anemia which may be 2/2 her vomiting/ nutritional status vs. heavy menstrual bleeding. Finally while hospitalized she was incidentally found to have a thryroid nodule on physical exam and advised F/U with endocrinology for further workup. She was doing well post operatively and discharged to home. Date of Discharge: 12/20/18 Minutes to complete discharge: 40 Discharge Summary Reason For Visit: ETM Condition: Improved - Instructions Diet, Activity, Other Instructions: You were admitted to the hospital because of stomach pain associated with vomiting. You had your gallbladder removed as this was contributing to your symptoms. 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 You need to see a GI doctor to address your chronic abdominal pain and vomiting after eating. You need to see a hospital social worker to address your chronic anemia. Dr. Daniel Discharge Instructions Dear TARYN OLIVARES, Post Operative Instructions Physical activity Resume your normal everyday activity as tolerated no heavy lifting or exercise until seen by your surgeon. You may walk unlimited amounts of and climb stairs. You may resume driving the car when you feel safe and comfortable behind the wheel. Wound care If you have a bandage, leave it on, and keep dry for 48 - 72 hours. After that time discard the outer bandage. If there are tapes on the skin under the outer bandage, leave them in place. They will peel off in the next 7 to 10 days. Do Not peel them off. You may shower 2 days after surgery. If there are tapes present on the skin, they can get wet. Diet There are no dietary restrictions. Eat healthy, high-fiber foods. Drink 6 to 8 glasses of liquid each day. This will assist in keeping your bowels are regular. Pain management You may take Tylenol or acetaminophen or Ibuprofen (for example, Motrin, Advil etc.) Do not exceed more than 4 grams in one day We will be also starting you on iron pills to be taken daily (325 mg daily) and stool softeners to be taken daily Call Dr. Daniel for any of the following: Severe pain not relieved by medication Fever of 101 or higher Excessive bleeding or drainage on dressing Inability to urinate Call the office at [phone] for a post operative appointment in 7 - 10 days. Medicine Discharge Instructions Please follow up with the following doctors: Dr. Daniel within 7-10 days> general surgery Dr. Grady Vickers at the [facility] ([address] [place] [address] in [place], for WednesdayDecember 20 at 11;30AM, ) follow up with [facility] GI doctor Dr. Higginbotham in 2 weeks to conitnue work up for the chronic vomiting after food Dr. 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 A spot was found on your liver of which you will need to have an MRI of to further evaluate In addition, you will also need an ultrasound of your thyroid *if you begin to experience worsening chest pains, abdominal pains, nausea/ vomiting, shortness of breath please return to the emergency room immediately Referrals: Naseem Daniel MD [Staff Physician] - 1 Week Mary Rudolph MD [Staff Physician] - Jacobo Berg MD [Non Staff, Medical] - Grady Vickers RES [Resident] - 12/23/18 11:30 am Disposition: HOME - Home Medications Comprehensive Discharge Medication List: Ambulatory Orders Acetaminophen [Tylenol .Extra-Strength -] 1 - 2 tab PO WEEKLY PRN 12/14/18 Calcium Carb/Magnesium Hydrox [Rolaids Chewable Tablet] 1 tab PO DAILY PRN 12/14 Docusate Sodium [Colace] 100 mg PO DAILY #30 capsule 12/20/18 Ferrous Sulfate 325 mg PO DAILY #30 tablet 12/20/18 Ibuprofen [Ibu-200] 400 mg PO Q8H PRN #30 tablet 12/20/18 Pantoprazole Sodium [Protonix] 40 mg PO DAILY #14 tablet. 12/20/18 This patient is new to me today: No Emergency Visit: Yes ED Registration Date: 12/13/18 Care time: The patient presented to the Emergency Department on the above date and was hospitalized for further evaluation of their emergent condition. Critical Care patient: No - Discharge Referral Referred to [facility] Med [facility].C[facility] No ATTENDING PHYSICIAN STATEMENT I saw and evaluated the patient. I reviewed the resident's note and discussed the case with the resident. I agree with the resident's findings and plan as documented. SUBJECTIVE: OBJECTIVE: ASSESSMENT AND PLAN:
--- NOTE | 2018-12-21 13:57 | OP ---
DATE OF OPERATION: 12/19/2018 PREOPERATIVE DIAGNOSIS: Symptomatic cholelithiasis. POSTOPERATIVE DIAGNOSIS: Symptomatic cholelithiasis. PROCEDURE: Laparoscopic cholecystectomy. SURGEON: Naseem Daniel MD HAND FRETTED INSTRUMENT MAKER: WIL Trujillo ANESTHESIA: General. OPERATIVE FINDINGS: There was cholelithiasis and mild, if any, acute cholecystitis. The rest of the findings were unremarkable. DESCRIPTION OF PROCEDURE: The patient was placed on the operating room table in supine position. After the induction of general anesthesia, the patient's abdomen was prepped with ChloraPrep and draped in sterile fashion. Time-out was taken and then pneumoperitoneum established above the umbilicus using a Veress needle. Once 15 mm of intra-abdominal pressure was obtained, a 5-mm port was placed at the umbilicus. Additional lateral 5-mm ports and a subxiphoid 12-mm port were placed and laparoscopy carried out, and the previously noted findings were observed. The gallbladder was placed on cephalad and lateral traction, and dissection was begun at the neck of the gallbladder where the peritoneum was opened medially and laterally using blunt and sharp dissection and electrocautery. Dissection continued in the triangle of Calot where the cystic duct was identified coursing from the neck of the gallbladder distally to the common bile duct. It was dissected proximally and distally for length. Similarly, the artery was similarly identified and dissected. A critical view of safety was taken, and then the cystic duct divided proximally and distally using Endo Melquiades after it was clipped twice proximally and distally with large hemoclips. The artery was similarly clipped and divided. Hemostasis was checked for and noted to be good and then the gallbladder was removed from the liver bed in a retrograde fashion using electrocautery. Prior to removal from the edge of the liver, hemostasis was again verified and then the gallbladder removed from the edge of the liver, placed in an EndoCatch, and brought out through the subxiphoid port. Pneumoperitoneum was reestablished, hemostasis verified again, and then the 5-mm lateral and subxiphoid ports were removed under laparoscopic vision without evidence of bleeding from the port sites. The umbilical port was removed and the pneumoperitoneum evacuated. All port sites were infiltrated with 0.5% Marcaine and the skin edges closed with 4-0 Biosyn in a subcuticular and continuous fashion. Steri-Strips and Band-Aid dressings were placed and the procedure terminated at this point and the patient aroused from general anesthesia and transferred to the post anesthesia care unit in stable condition awake and alert. ESTIMATED BLOOD LOSS: 10 mL. REPLACEMENTS: Crystalloid. DRAINS: None. SPECIMENS: Gallbladder and contents to pathology. I, Naseem Daniel, was physically present in the operating room from the time the patient was placed on the operating room table until she was transferred to the post anesthesia care unit in my accompaniment. MD PERCY Holbrook/[id number]
--- NOTE | 2018-12-22 10:48 | PATH ---
Surgical Pathology Report Patient Name: TARYN POSADA [facility]. Rec. #: [id number] /Age/Gender: 1970 (Age: 48) / F Account: [id number] Location: [address] [place] [address] Taken: 12/19/2018 Received: 12/19/2018 Reported: 12/22/2018 Physicians: Naseem Daniel MD Specimen(s) Received GALLBLADDER Clinical History Acute cholecystitis Final Diagnosis GALLBLADDER, CHOLECYSTECTOMY: CHRONIC CHOLECYSTITIS AND CHOLESTEROLOSIS. Electronically Signed Edison Penn M.D. Gross Description Received in formalin, labeled "gallbladder," is an 8.1 x 3.0 x 3.0cm. gallbladder with a 0.2 cm. in length portion of cystic duct attached. No pericystic lymph node present. The outer surface varies from smooth to shaggy. The lumen contains with green- brown bile. No calculi present. The mucosa shows velvety mucosa with focal patch yellow change. The wall of the gallbladder measures 0.1cm. in thickness. Embossed Or Impressed Lettering Painter sections are submitted in two cassettes. [email or web address]/12/19/2018 alejandro/12/19/2018
== END 2018-12-20 18:29 | disposition home or self-care (01) | DRG 419 ==
LOC: JER 01:17 → JERBED 04:43 → J5S 19:57
PROVIDERS: ADMIT Internal Medicine; ATTEND Internal Medicine
PROC: 0FT44ZZ Resection of Gallbladder, Percutaneous Endoscopic Approach (ICD-10-PCS; principal; 2018-12-19 11:00)
DX: K80.12 Calculus of gallbladder with acute and chronic cholecystitis without obstruction (principal); K21.9 Gastro-esophageal reflux disease without esophagitis; D50.9 Iron deficiency anemia, unspecified; R74.0 Nonspecific elevation of levels of transaminase and lactic acid dehydrogenase [LDH]; R00.1 Bradycardia, unspecified; E04.1 Nontoxic single thyroid nodule; E87.6 Hypokalemia
CPT/HCPCS: 36415; 74174-TC; 74181-TC; 74240-TC-FY; 76705-TC; 78226-TC; 80048; 80053; 80074; 80076; 81003; 82550; 82553; 82728; 83540; 83550; 83690; 83735; 84443; 84484; 84703; 85025; 85027; 85610; 86704; 86706; 86850; 86900; 86901; 87086; 88304-TC; 93005; 93010; 94760; 99285-25; A9537; J0131; J1644; J7030

== ENCOUNTER 2020-10-07 04:07 | Day surgery (SDC) | payer OTHER ==
[2020-10-03 16:16] VITALS: BMI 33.6
[2020-10-07] MEDS ORDERED: PROPOFOL 20 ML ONE (11:14)
[2020-10-07] MEDS ORDERED: MIDAZOLAM HCL 2 MG/2 ML SINGLE DOSE VIAL ONE (11:14)
[2020-10-07] MEDS ORDERED: ACETAMINOPHEN 325 MG TABLET (FP) PO PRN (11:15)
[2020-10-07] MEDS ORDERED: IBUPROFEN 400 MG TABLET (FP) PO PRN (11:15)
[2020-10-07] MEDS ORDERED: KETOROLAC TROMETHAMINE 30 MG/1 ML VIAL ONE (11:55)
[2020-10-07] MEDS ORDERED: DEXAMETHASONE SOD PHOSPHATE 4 MG/1 ML VIAL ONE (11:55)
[2020-10-07] MEDS ORDERED: oxyCODONE HCL 5 MG TABLET PO PRN (12:28)
[2020-10-07] MEDS ORDERED: ONDANSETRON 4 MG/2 ML VIAL IVPUSH PRN (12:28)
[2020-10-07] MEDS ORDERED: ACETAMINOPHEN 1000 MG/100 ML VIAL (NON FORMULARY) IVPB ONE (12:29)
[2020-10-07] MEDS ORDERED: LACTATED RINGERS SOLUTION 1,000 ML IV SCH (12:30)
[2020-10-07 17:53] VITALS: BP 118/73; PULSE 62; TEMP 97.6
== END 2020-10-07 16:00 | disposition home or self-care (01) ==
LOC: JASU-SURG 04:07
PROVIDERS: ATTEND Obstetrics & Gynecology
PROC: 0UB98ZZ Excision of Uterus, Via Natural or Artificial Opening Endoscopic (ICD-10-PCS; principal; 2020-10-07 10:00)
PROC: 0UDB8ZX Extraction of Endometrium, Via Natural or Artificial Opening Endoscopic, Diagnostic (ICD-10-PCS; 2020-10-07 10:00)
DX: N84.0 Polyp of corpus uteri (principal); D25.0 Submucous leiomyoma of uterus
CPT/HCPCS: 88305-TC; 94760

== ENCOUNTER 2024-07-20 06:36 | Day surgery (SDC) | payer OTHER ==
[2024-07-20] MEDS: PHENAZOPYRIDINE HCL 100 MG TABLET (FP) PO ONE (06:41)
[2024-07-20] MEDS ORDERED: ROCURONIUM BROMIDE 50 MG/5 ML SYRINGE ONE (07:33)
[2024-07-20] MEDS ORDERED: PROPOFOL 20 ML ONE (07:33)
[2024-07-20] MEDS ORDERED: SUCCINYLCHOLINE CHLORIDE 200 MG/10 ML SYRINGE ONE (07:33)
[2024-07-20] MEDS ORDERED: MIDAZOLAM HCL 2 MG/2 ML SINGLE DOSE VIAL ONE (07:34)
[2024-07-20] MEDS: ceFAZolin SODIUM 1 GM VIAL IVPB ONE ×2 (07:56→08:10)
[2024-07-20] MEDS ORDERED: ceFAZolin SODIUM 1 GM VIAL ONE (08:03)
[2024-07-20] MEDS ORDERED: DEXAMETHASONE SOD PHOSPHATE 4 MG/1 ML VIAL ONE (08:03)
[2024-07-20] MEDS ORDERED: ONDANSETRON 4 MG/2 ML VIAL ONE ×2 (08:03→09:38)
[2024-07-20] MEDS ORDERED: TRANEXAMIC ACID 1000 MG/10 ML VIAL ONE (08:25)
[2024-07-20] MEDS ORDERED: ACETAMINOPHEN INJECTION 100 ML ONE (08:25)
[2024-07-20] MEDS ORDERED: HYDROmorphone HCl 2 MG/ML VIAL ONE (08:27)
[2024-07-20] MEDS ORDERED: ePHEDrine SULFATE 50 MG/1 ML AMPULE ONE (08:36)
[2024-07-20] MEDS ORDERED: GLYCOPYRROLATE 0.2 MG/1 ML VIAL ONE ×2 (09:37)
[2024-07-20] MEDS ORDERED: NEOSTIGMINE METHYLSULFATE 0.5 MG/1 ML - 10 ML MDV ONE (09:37)
[2024-07-20] MEDS ORDERED: ONDANSETRON 4 MG/2 ML VIAL IVPUSH PRN ×2 (10:08→10:10)
[2024-07-20] MEDS ORDERED: DOCUSATE SODIUM 100 MG CAPSULE (FP) PO PRN (10:10)
[2024-07-20] MEDS ORDERED: oxyCODONE HCL 5 MG TABLET PO PRN ×2 (10:10)
[2024-07-20] MEDS ORDERED: BISACODYL 5 MG TABLET.DR (FP) PO PRN (10:10)
[2024-07-20] MEDS ORDERED: LACTATED RINGERS SOLUTION 1,000 ML IV SCH (10:15)
[2024-07-20] MEDS ORDERED: IBUPROFEN 800 MG/8 ML IJ IVPB ONE (11:28)
[2024-07-20] MEDS: IBUPROFEN 800 MG/8 ML IJ IVPB SCH (11:39)
[2024-07-20] MEDS: LACTATED RINGERS SOLUTION 1,000 ML/1,000 ML INFUS.BAG IV SCH (11:40)
[2024-07-20] MEDS: CEFAZOLIN 1 GM in DEXTROSE 5%-WATER - 50 ML IVPB SCH (16:48)
[2024-07-20] MEDS: CEFAZOLIN 1 GM/D5W 1 GM/50 ML BAG IVPB SCH (16:49)
[2024-07-20] MEDS: ACETAMINOPHEN 1000 MG/100 ML BAG IVPB SCH (17:21)
[2024-07-20 17:36] VITALS: RESP 18
[2024-07-20 19:08] LABS: HEMATOCRIT 38.6 % (34.1-44.9); HEMOGLOBIN 12.7 g/dL (11.2-15.7); MCHC 32.9 g/dl (32.2-35.5); MEAN CELL VOLUME 88.9 fl (79.4-94.8); MEAN PLT VOLUME 9.5 fl (9.4-12.3); PLATELET COUNT 269 x10^3/uL (182-369); RDW 12.9 % (12.3-16.6)
[2024-07-20 19:31] LABS: POTASSIUM 4.2 mmol/L (3.5-5.1)
[2024-07-20 19:32] LABS: CALCIUM 9.2 mg/dL (8.5-10.1)
[2024-07-20 19:33] LABS: BLOOD UREA NITROGEN 11.2 mg/dL (7-18)
[2024-07-20 19:36] LABS: CREATININE 0.9 mg/dL (0.55-1.3)
[2024-07-21 02:09] VITALS: TEMP 98.2
[2024-07-21 07:42] LABS: HEMATOCRIT 37.4 % (34.1-44.9); HEMOGLOBIN 12.3 g/dL (11.2-15.7); MCHC 32.9 g/dl (32.2-35.5); MEAN CELL VOLUME 89.5 fl (79.4-94.8); MEAN PLT VOLUME 9.5 fl (9.4-12.3); PLATELET COUNT 265 x10^3/uL (182-369); RDW 13.1 % (12.3-16.6)
[2024-07-21 08:11] LABS: POTASSIUM 3.9 mmol/L (3.5-5.1)
[2024-07-21 08:16] LABS: CREATININE 0.8 mg/dL (0.55-1.3)
[2024-07-21 08:18] LABS: BLOOD UREA NITROGEN 11.6 mg/dL (7-18); CALCIUM 9.1 mg/dL (8.5-10.1)
[2024-07-21] MEDS: ENOXAPARIN NA (PORCINE) 40 MG/0.4 ML DISP.SYRIN SQ SCH (09:12)
[2024-07-21] MEDS: SIMETHICONE 80 MG TAB.CHEW (FP) PO PRN (09:12)
[2024-07-21 10:19] VITALS: BP 131/67; PULSE 75
[2024-07-21] MEDS ORDERED: IBUPROFEN 600 MG TABLET (FP) PO SCH (12:00)
[2024-07-21] MEDS ORDERED: ACETAMINOPHEN 500 MG TABLET (FP) PO SCH (16:00)
== END 2024-07-21 11:45 | disposition home or self-care (01) ==
LOC: JASUSAT 06:36 → J3W 12:17 → JASUSAT 07-21 11:45
PROVIDERS: ATTEND Obstetrics & Gynecology
PROC: 0UB64ZX Excision of Left Fallopian Tube, Percutaneous Endoscopic Approach, Diagnostic (ICD-10-PCS; 2024-07-20)
PROC: 8E0W4CZ Robotic Assisted Procedure of Trunk Region, Percutaneous Endoscopic Approach (ICD-10-PCS; 2024-07-20)
PROC: 0UT94ZZ Resection of Uterus, Percutaneous Endoscopic Approach (ICD-10-PCS; principal; 2024-07-20 07:45)
PROC: 0UT74ZZ Resection of Bilateral Fallopian Tubes, Percutaneous Endoscopic Approach (ICD-10-PCS; 2024-07-20 07:45)
DX: N80.03 Adenomyosis of the uterus (principal); N84.0 Polyp of corpus uteri; Z78.0 Asymptomatic menopausal state
CPT/HCPCS: 58571; S2900; 36415; 80048; 85027; 86850; 86900; 86901; 88305-TC; 88307-TC; 94010; 94760; J0131